=== PATIENT | female | born 1960 | race African-American/Black ===

== ENCOUNTER 2020-07-22 14:36 | Inpatient (IN) ==
[2020-07-22 16:13] LABS: Basophils % 0.9 % (0.0-0.8); Eosinophils # 0.1 10*3/uL (0.0-0.87); Hematocrit 39.2 VOL% (35.7-47.0); Hemoglobin 12.8 GM/DL (12.0-16.0); Immature Granulocytes % 0.2 %; Immature Granulocytes Absolute 0.01 #; Lymphocytes # 1.7 10*3/uL (1.4-4.0); Lymphocytes % 39.5 % (21.3-54.2); Mean Corpuscular HGB Conc 32.7 GM/DL (32-36); Mean Corpuscular Volume 77.3 FL (87-102); Mean Platelet Volume 9.7 FL (9.6-12.0); Monocytes % 6.5 % (1.7-12.7); Neutrophils % 49.9 % (38.7-73.9); Platelet Count 168 T/CUMM (130-400); Red Blood Count 5.07 MC/CUMM (3.8-5.5); Red Cell Distribution Width 13.7 % (9.3-17.3); White Blood Count 4.3 T/CUMM (4-12)
[2020-07-22 16:31] LABS: Bilirubin,Urine Negative (Negative); Blood, Urine Negative (Negative); Glucose,Urine (UA) 50 mg/dL (Negative); Ketones,Urine Negative (Negative); Mucus,Urine Occasional /LPF (Occasional); Nitrite,Urine Negative (Negative); Protein,Urine >=500 MG/DL; Squamous Epithelial Cell,Urine Occasional /HPF (0-10); Urine Appearance CLEAR (Clear); Urine Color Yellow (Yellow); Urine Specific Gravity 1.018 (1.001-1.035); Urine Urobilinogen < 2.0 EU/DL (0.2-1.0)
[2020-07-22 16:32] LABS: Barbiturates Screen,Urine Negative (Negative); Benzodiazepines Screen,Urine Negative (Negative); Cannabinoid Screen,Urine Negative (Negative); Opiate Screen,Urine Negative (Negative); Phencyclidine Screen,Urine Negative (Negative)
[2020-07-22 16:36] LABS: Alanine Aminotransferase 42 U/L (13-56); Albumin 3.2 G/DL (3.4-5.0); Alkaline Phosphatase 127 U/L (45-117); Aspartate Amino Transferase 28 U/L (0-37); Blood Urea Nitrogen 18 MG/DL (7-18); Calcium 9.4 MG/DL (8.5-10.1); Carbon Dioxide 32 MMOL/L (21-32); Estimated Glom Filtration Rate 117 ML/MIN; Glucose 98 MG/DL (74-106); Osmolality,Calculated 280.4 MOS/KG (273-304); Sodium 140 MMOL/L (136-145); Total Protein 8.7 G/DL (6.4-8.2); Troponin I < 0.015 NG/ML (0.00-0.045)
[2020-07-22] MEDS ORDERED: SODIUM CHLORIDE 0.9% 1,000 ML IV STA (16:44)
[2020-07-22] MEDS ORDERED: hydrALAZINE 20 MG/1 ML VIAL IV STA (17:09)
[2020-07-22] MEDS ORDERED: DEXTROSE 50% 25 GM/50 ML VIAL IV PRN ×2 (20:37)
[2020-07-22] MEDS ORDERED: ONDANSETRON 4 MG/2 ML VIAL IV PRN (20:37)
[2020-07-22] MEDS ORDERED: GLUCAGON 1 MG VIAL IM PRN ×2 (20:37)
[2020-07-22] MEDS: ENOXAPARIN 40 MG/0.4 ML SYRINGE SUBCUT SCH (21:53)
[2020-07-22] MEDS: INSULIN REGULAR 100 UNIT/ML SUBCUT SCH (21:58)
[2020-07-23 06:08] LABS: Basophils % 0.9 % (0.0-0.8); Eosinophils # 0.1 10*3/uL (0.0-0.87); Eosinophils % 2.9 % (0.00-10.9); Hematocrit 32.6 VOL% (35.7-47.0); Immature Granulocytes % 0.3 %; Immature Granulocytes Absolute 0.01 #; Lymphocytes # 1.4 10*3/uL (1.4-4.0); Lymphocytes % 40.2 % (21.3-54.2); Mean Corpuscular HGB Conc 32.5 GM/DL (32-36); Mean Corpuscular Volume 76.5 FL (87-102); Mean Platelet Volume 10.2 FL (9.6-12.0); Monocytes % 9.2 % (1.7-12.7); Neutrophils % 46.5 % (38.7-73.9); Platelet Count 151 T/CUMM (130-400); Red Blood Count 4.26 MC/CUMM (3.8-5.5); Red Cell Distribution Width 13.6 % (9.3-17.3); White Blood Count 3.5 T/CUMM (4-12)
[2020-07-23 06:12] LABS: Hemoglobin 10.6 GM/DL (12.0-16.0)
[2020-07-23 06:26] LABS: Albumin 2.5 G/DL (3.4-5.0); Bilirubin,Total 0.5 MG/DL (0.2-1.0); Calcium 8.8 MG/DL (8.5-10.1); Osmolality,Calculated 277.4 MOS/KG (273-304); Potassium 3.1 MMOL/L (3.5-5.1); Thyroid Stimulating Hormone 2.17 uIU/ml (0.358-3.74); Total Protein 6.8 G/DL (6.4-8.2)
[2020-07-23] MEDS: INSULIN REGULAR 100 UNIT/ML SUBCUT SCH ×3 (08:47→17:10)
[2020-07-23] MEDS: PANTOPRAZOLE 40 MG TABLET PO SCH (08:48)
[2020-07-23] MEDS ORDERED: POTASSIUM CHLORIDE RIDER 10 MEQ in PREMIX 1 EACH IV PRN (09:45)
[2020-07-23] MEDS ORDERED: POTASSIUM CHLORIDE 20 MEQ TABLET PO PRN ×2 (09:45→09:46)
[2020-07-23] MEDS ORDERED: POTASSIUM CHLORIDE 20 MEQ TABLET PO ONE (10:52)
[2020-07-23] MEDS ORDERED: amLODIPine 5 MG TABLET PO SCH (11:12)
[2020-07-23] MEDS: METOPROLOL TARTRATE 100 MG TABLET PO SCH (11:28)
[2020-07-23] MEDS: OLMESARTAN 20 MG TABLET PO SCH (11:29)
[2020-07-23] MEDS: ENOXAPARIN 40 MG/0.4 ML SYRINGE SUBCUT SCH (21:04)
[2020-07-24] MEDS: INSULIN REGULAR 100 UNIT/ML SUBCUT SCH ×5 (00:43→23:56)
[2020-07-24 05:29] LABS: Basophils % 0.8 % (0.0-0.8); Eosinophils # 0.1 10*3/uL (0.0-0.87); Eosinophils % 2.8 % (0.00-10.9); Hematocrit 31.6 VOL% (35.7-47.0); Immature Granulocytes % 0.3 %; Immature Granulocytes Absolute 0.01 #; Lymphocytes # 1.9 10*3/uL (1.4-4.0); Lymphocytes % 54.4 % (21.3-54.2); Mean Corpuscular HGB Conc 31.6 GM/DL (32-36); Mean Corpuscular Volume 78.6 FL (87-102); Mean Platelet Volume 10.4 FL (9.6-12.0); Neutrophils % 32.7 % (38.7-73.9); Platelet Count 118 T/CUMM (130-400); Red Blood Count 4.02 MC/CUMM (3.8-5.5); Red Cell Distribution Width 13.4 % (9.3-17.3); White Blood Count 3.6 T/CUMM (4-12)
[2020-07-24 05:54] LABS: Atypical Lymphocytes Few; Eosinophils 3 % (0-10); Hypochromasia 1+; Lymphocytes 62 % (20-55); Microcytosis 1+; Segmented Neutrophils 32 % (50-85); Total Cells Counted 100
[2020-07-24 05:57] LABS: Calcium 8.7 MG/DL (8.5-10.1); Osmolality,Calculated 279.4 MOS/KG (273-304); Potassium 3.5 MMOL/L (3.5-5.1)
[2020-07-24 06:01] LABS: Risk Ratio 2.98; VLDL CHOLESTEROL 18.8 MG/DL
[2020-07-24 06:05] LABS: Folate > 24.0 NG/ML (5.38-24.0); Vitamin B12 1031 PG/ML (211-911)
[2020-07-24] MEDS: SPIRONOLACTONE 25 MG TABLET PO SCH (09:07)
[2020-07-24] MEDS: OLMESARTAN 20 MG TABLET PO SCH (09:07)
[2020-07-24] MEDS: PANTOPRAZOLE 40 MG TABLET PO SCH (09:07)
[2020-07-24] MEDS: COLCHICINE 0.6 MG CAPSULE PO SCH (09:11)
[2020-07-24] MEDS: METOPROLOL TARTRATE 100 MG TABLET PO SCH (09:11)
[2020-07-24] MEDS: CHOLECALCIFEROL 1,000 UNIT TABLET PO SCH (13:34)
[2020-07-24] MEDS ORDERED: TUBERCULIN SKIN TEST 0.1 ML SYRINGE INTRADERM ONE (19:41)
[2020-07-24] MEDS: ENOXAPARIN 40 MG/0.4 ML SYRINGE SUBCUT SCH (21:49)
[2020-07-25 05:10] LABS: Basophils % 0.5 % (0.0-0.8); Eosinophils # 0.1 10*3/uL (0.0-0.87); Eosinophils % 3.3 % (0.00-10.9); Hematocrit 30.5 VOL% (35.7-47.0); Hemoglobin 9.9 GM/DL (12.0-16.0); Immature Granulocytes % 0.3 %; Immature Granulocytes Absolute 0.01 #; Lymphocytes # 1.6 10*3/uL (1.4-4.0); Lymphocytes % 44.4 % (21.3-54.2); Mean Corpuscular HGB Conc 32.5 GM/DL (32-36); Mean Corpuscular Volume 76.4 FL (87-102); Mean Platelet Volume 10.4 FL (9.6-12.0); Monocytes % 10.4 % (1.7-12.7); Neutrophils % 41.1 % (38.7-73.9); Platelet Count 116 T/CUMM (130-400); Red Blood Count 3.99 MC/CUMM (3.8-5.5); Red Cell Distribution Width 13.3 % (9.3-17.3); White Blood Count 3.7 T/CUMM (4-12)
[2020-07-25 05:24] LABS: Calcium 8.6 MG/DL (8.5-10.1); Potassium 3.4 MMOL/L (3.5-5.1)
[2020-07-25] MEDS: INSULIN REGULAR 100 UNIT/ML SUBCUT SCH ×4 (08:28→21:43)
[2020-07-25] MEDS: PANTOPRAZOLE 40 MG TABLET PO SCH (09:14)
[2020-07-25] MEDS: OLMESARTAN 20 MG TABLET PO SCH (09:37)
[2020-07-25] MEDS: ACETAMINOPHEN 325 MG TABLET PO PRN (09:37)
[2020-07-25] MEDS: COLCHICINE 0.6 MG CAPSULE PO SCH (09:38)
[2020-07-25] MEDS: CHOLECALCIFEROL 1,000 UNIT TABLET PO SCH (09:38)
[2020-07-25] MEDS: SPIRONOLACTONE 25 MG TABLET PO SCH (09:38)
[2020-07-25] MEDS: METOPROLOL TARTRATE 100 MG TABLET PO SCH (09:39)
[2020-07-25] MEDS ORDERED: POTASSIUM CHLORIDE INJ 30 MEQ in SODIUM CHLORIDE 0.9% 500 ML IV SCH (11:15)
[2020-07-25] MEDS: ENOXAPARIN 40 MG/0.4 ML SYRINGE SUBCUT SCH (21:44)
[2020-07-26 05:37] LABS: Calcium 8.6 MG/DL (8.5-10.1); Osmolality,Calculated 284.1 MOS/KG (273-304); Potassium 3.4 MMOL/L (3.5-5.1)
[2020-07-26] MEDS: INSULIN REGULAR 100 UNIT/ML SUBCUT SCH ×4 (08:32→20:53)
[2020-07-26] MEDS: OLMESARTAN 20 MG TABLET PO SCH (08:33)
[2020-07-26] MEDS: CHOLECALCIFEROL 1,000 UNIT TABLET PO SCH (08:33)
[2020-07-26] MEDS: SPIRONOLACTONE 25 MG TABLET PO SCH (08:34)
[2020-07-26] MEDS: PANTOPRAZOLE 40 MG TABLET PO SCH (08:34)
[2020-07-26] MEDS: COLCHICINE 0.6 MG CAPSULE PO SCH (08:34)
[2020-07-26] MEDS: METOPROLOL TARTRATE 100 MG TABLET PO SCH (08:34)
[2020-07-26] MEDS ORDERED: TUBERCULIN SKIN TEST 0.1 ML SYRINGE INTRADERM ONE (14:31)
[2020-07-26] MEDS: ENOXAPARIN 40 MG/0.4 ML SYRINGE SUBCUT SCH (20:53)
[2020-07-27 06:10] LABS: Basophils # 0.1 10*3/uL (0.0-0.2); Eosinophils # 0.2 10*3/uL (0.0-0.87); Eosinophils % 3.4 % (0.00-10.9); Hematocrit 30.6 VOL% (35.7-47.0); Immature Granulocytes % 0.2 %; Immature Granulocytes Absolute 0.01 #; Lymphocytes # 1.6 10*3/uL (1.4-4.0); Lymphocytes % 32.1 % (21.3-54.2); Mean Corpuscular HGB Conc 32.7 GM/DL (32-36); Mean Corpuscular Volume 76.1 FL (87-102); Mean Platelet Volume 10.3 FL (9.6-12.0); Monocytes % 15.9 % (1.7-12.7); Neutrophils % 47.4 % (38.7-73.9); Platelet Count 123 T/CUMM (130-400); Red Blood Count 4.02 MC/CUMM (3.8-5.5); Red Cell Distribution Width 13.2 % (9.3-17.3)
[2020-07-27 06:30] LABS: Osmolality,Calculated 281.1 MOS/KG (273-304); Potassium 3.4 MMOL/L (3.5-5.1)
[2020-07-27 06:43] LABS: Eosinophils 3 % (0-10); Hypochromasia 1+; Lymphocytes 25 % (20-55); Microcytosis 1+; Platelet Estimate Normal; Segmented Neutrophils 57 % (50-85); Total Cells Counted 100
[2020-07-27] MEDS: CHOLECALCIFEROL 1,000 UNIT TABLET PO SCH (08:46)
[2020-07-27] MEDS: COLCHICINE 0.6 MG CAPSULE PO SCH (08:46)
[2020-07-27] MEDS: OLMESARTAN 20 MG TABLET PO SCH (08:46)
[2020-07-27] MEDS: SPIRONOLACTONE 25 MG TABLET PO SCH (08:50)
[2020-07-27] MEDS: INSULIN REGULAR 100 UNIT/ML SUBCUT SCH ×3 (08:51→20:17)
[2020-07-27] MEDS: METOPROLOL TARTRATE 100 MG TABLET PO SCH (08:51)
[2020-07-27] MEDS: PANTOPRAZOLE 40 MG TABLET PO SCH (08:51)
[2020-07-27] MEDS: APIXABAN 5 MG TABLET PO SCH (20:16)
[2020-07-28] MEDS: ACETAMINOPHEN 325 MG TABLET PO PRN ×2 (03:17→08:14)
[2020-07-28] MEDS: INSULIN REGULAR 100 UNIT/ML SUBCUT SCH ×3 (07:16→11:50)
[2020-07-28] MEDS: PANTOPRAZOLE 40 MG TABLET PO SCH (08:14)
[2020-07-28] MEDS: COLCHICINE 0.6 MG CAPSULE PO SCH (08:14)
[2020-07-28] MEDS: SPIRONOLACTONE 25 MG TABLET PO SCH (08:15)
[2020-07-28] MEDS: APIXABAN 5 MG TABLET PO SCH (08:15)
[2020-07-28] MEDS: CHOLECALCIFEROL 1,000 UNIT TABLET PO SCH (08:15)
[2020-07-28] MEDS ORDERED: predniSONE 20 MG TABLET PO SCH (09:00)
[2020-07-28] MEDS ORDERED: valACYclovir 500 MG TABLET PO SCH (09:00)
[2020-07-28] MEDS ORDERED: FERROUS SULFATE 325 MG TABLET PO SCH (09:00)
[2020-07-28] MEDS ORDERED: LINEZOLID 600 MG TABLET PO SCH (09:00)
[2020-07-28] MEDS ORDERED: MULTIVITAMIN (CENTRUM) TABLET PO SCH (09:00)
[2020-07-28] MEDS ORDERED: ATORVASTATIN 40 MG TABLET PO SCH (09:00)
[2020-07-28] MEDS: METOPROLOL TARTRATE 100 MG TABLET PO SCH (09:42)
[2020-07-28] MEDS: OLMESARTAN 20 MG TABLET PO SCH (09:42)
[2020-07-28] MEDS ORDERED: hydrALAZINE 20 MG/1 ML VIAL IV PRN (10:51)
[2020-07-28] MEDS ORDERED: PREGABALIN 25 MG CAPSULE PO SCH (11:00)
[2020-07-28 16:01] VITALS: BP 124/72
[2020-07-28] MEDS ORDERED: METOPROLOL TARTRATE 100 MG TABLET PO SCH (21:00)
[2020-07-29] MEDS ORDERED: PREGABALIN 25 MG CAPSULE PO SCH (09:00)
== END 2020-07-28 16:19 | DRG 546 ==
LOC: N.EDINP 14:36 → N.ED 14:36 → N.4E 20:49 → SUATTDRO 07-24 14:59
PROVIDERS: ADMIT Internal Medicine; ATTEND Internal Medicine

== ENCOUNTER 2020-07-30 12:54 | Observation (INO) ==
[2020-07-30] MEDS ORDERED: DOCUSATE SODIUM 100 MG CAPSULE PO PRN (14:13)
[2020-07-30] MEDS ORDERED: GLUCAGON 1 MG VIAL IM PRN (14:13)
[2020-07-30] MEDS ORDERED: ONDANSETRON 4 MG/2 ML VIAL IV PRN (14:13)
[2020-07-30] MEDS ORDERED: hydrALAZINE 20 MG/1 ML VIAL IV PRN (14:13)
[2020-07-30] MEDS ORDERED: ALBUTEROL 2.5 MG/3 ML NEB RESP TX PRN (14:13)
[2020-07-30] MEDS ORDERED: ACETAMINOPHEN 325 MG TABLET PO PRN (14:13)
[2020-07-30] MEDS ORDERED: DEXTROSE 50% 25 GM/50 ML VIAL IV PRN (14:13)
[2020-07-30] MEDS ORDERED: guaiFENesin/DM ER 600-30 MG TABLET PO PRN (14:13)
[2020-07-30] MEDS ORDERED: ASPIRIN EC 325 MG TABLET PO STA (14:21)
[2020-07-30 14:29] LABS: Basophils % 0.5 % (0.0-0.8); Eosinophils # 0.3 10*3/uL (0.0-0.87); Hematocrit 31.7 VOL% (35.7-47.0); Hemoglobin 10.1 GM/DL (12.0-16.0); Immature Granulocytes % 0.5 %; Immature Granulocytes Absolute 0.02 #; Lymphocytes # 1.5 10*3/uL (1.4-4.0); Mean Corpuscular HGB Conc 31.9 GM/DL (32-36); Mean Corpuscular Volume 77.7 FL (87-102); Mean Platelet Volume 10.4 FL (9.6-12.0); Monocytes % 9.5 % (1.7-12.7); Neutrophils % 43.5 % (38.7-73.9); Platelet Count 190 T/CUMM (130-400); Red Blood Count 4.08 MC/CUMM (3.8-5.5); Red Cell Distribution Width 13.9 % (9.3-17.3)
[2020-07-30] MEDS ORDERED: NON-FORMULARY MEDICATION (Methylprednisolone [Medrol (Pak)] 4 mg Tablets,Dose Pack) PO SCH (14:30)
[2020-07-30] MEDS ORDERED: ENOXAPARIN 40 MG/0.4 ML SYRINGE SUBCUT SCH (14:30)
[2020-07-30 14:43] LABS: INR 1.2; PT Patient Result 13.5 SECS (9.8-11.9)
[2020-07-30 14:56] LABS: Alanine Aminotransferase 64 U/L (13-56); Albumin 2.8 G/DL (3.4-5.0); Alkaline Phosphatase 82 U/L (45-117); Aspartate Amino Transferase 28 U/L (0-37); Bilirubin,Total < 0.39 MG/DL (0.2-1.0); Blood Urea Nitrogen 20 MG/DL (7-18); Calcium 8.8 MG/DL (8.5-10.1); Carbon Dioxide 26 MMOL/L (21-32); Estimated Glom Filtration Rate 95 ML/MIN; Glucose 106 MG/DL (74-106); Osmolality,Calculated 285.1 MOS/KG (273-304); Potassium 3.4 MMOL/L (3.5-5.1); Sodium 142 MMOL/L (136-145); Total Protein 6.5 G/DL (6.4-8.2)
[2020-07-30 15:02] LABS: Risk Ratio 3.82; VLDL CHOLESTEROL 23.8 MG/DL
[2020-07-30 15:42] LABS: Bilirubin,Urine Negative (Negative); Blood, Urine Negative (Negative); Glucose,Urine (UA) 50 mg/dL (Negative); Ketones,Urine Negative (Negative); Mucus,Urine Occasional /LPF (Occasional); Nitrite,Urine Negative (Negative); Protein,Urine 30 MG/DL; RBC,Urine <1 /HPF (0-4); Squamous Epithelial Cell,Urine Occasional /HPF (0-10); Urine Appearance CLEAR (Clear); Urine Color Yellow (Yellow); Urine Specific Gravity 1.021 (1.001-1.035); Urine Urobilinogen < 2.0 EU/DL (0.2-1.0)
[2020-07-30] MEDS ORDERED: LORazepam 2 MG/1 ML VIAL IV STA (18:16)
[2020-07-30] MEDS: valACYclovir 500 MG TABLET PO SCH ×2 (18:25→23:41)
[2020-07-30] MEDS ORDERED: diphenhydrAMINE 2% CREAM 28 GM TUBE TOP PRN (20:11)
[2020-07-30] MEDS ORDERED: diphenhydrAMINE CAP 25 MG CAPSULE PO PRN (20:11)
[2020-07-30] MEDS: INSULIN LISPRO 100 UNIT/ML SUBCUT SCH (21:02)
[2020-07-30] MEDS: methylPREDNISolone 4 MG TABLET PO SCH (23:32)
[2020-07-30] MEDS: APIXABAN 5 MG TABLET PO SCH (23:34)
[2020-07-30] MEDS: SULFAMETHOX/TRIMETHOPRIM 800-160 MG TABLET PO SCH (23:35)
[2020-07-30] MEDS: METOPROLOL TARTRATE 100 MG TABLET PO SCH (23:42)
[2020-07-30] MEDS: FLUTICASONE/SALMETEROL 100-50 DISKUS 14 DOSE INH SCH (23:43)
[2020-07-30] MEDS: SODIUM CHLORIDE 0.45% 1,000 ML IV SCH (23:43)
[2020-07-31] MEDS: SODIUM CHLORIDE 0.45% 1,000 ML IV SCH ×2 (00:39→10:42)
[2020-07-31 07:46] LABS: Basophils % 0.5 % (0.0-0.8); Hematocrit 33.5 VOL% (35.7-47.0); Hemoglobin 10.5 GM/DL (12.0-16.0); Immature Granulocytes % 0.5 %; Immature Granulocytes Absolute 0.02 #; Lymphocytes # 0.5 10*3/uL (1.4-4.0); Lymphocytes % 13.3 % (21.3-54.2); Mean Corpuscular HGB Conc 31.3 GM/DL (32-36); Mean Corpuscular Volume 77.7 FL (87-102); Mean Platelet Volume 10.2 FL (9.6-12.0); Monocytes % 2.1 % (1.7-12.7); Neutrophils % 82.6 % (38.7-73.9); Platelet Count 207 T/CUMM (130-400); Red Blood Count 4.31 MC/CUMM (3.8-5.5); Red Cell Distribution Width 13.6 % (9.3-17.3); White Blood Count 3.9 T/CUMM (4-12)
[2020-07-31 08:06] LABS: Calcium 8.8 MG/DL (8.5-10.1); Osmolality,Calculated 280.5 MOS/KG (273-304); Potassium 3.8 MMOL/L (3.5-5.1)
[2020-07-31 08:13] LABS: Eosinophils 1 % (0-10); Hypochromasia 1+; Lymphocytes 11 % (20-55); Segmented Neutrophils 86 % (50-85); Total Cells Counted 100
[2020-07-31 08:14] LABS: Microcytosis 1+; Platelet Estimate Normal
[2020-07-31] MEDS: valACYclovir 500 MG TABLET PO SCH ×2 (08:33→14:45)
[2020-07-31] MEDS: methylPREDNISolone 4 MG TABLET PO SCH ×2 (08:33→14:44)
[2020-07-31] MEDS: METOPROLOL TARTRATE 100 MG TABLET PO SCH (08:35)
[2020-07-31] MEDS: APIXABAN 5 MG TABLET PO SCH (08:36)
[2020-07-31] MEDS: SULFAMETHOX/TRIMETHOPRIM 800-160 MG TABLET PO SCH (08:37)
[2020-07-31] MEDS ORDERED: SPIRONOLACTONE 25 MG TABLET PO SCH (09:00)
[2020-07-31] MEDS ORDERED: OLMESARTAN 20 MG TABLET PO SCH (09:00)
[2020-07-31] MEDS ORDERED: ATORVASTATIN 40 MG TABLET PO SCH ×2 (09:00)
[2020-07-31] MEDS ORDERED: ASPIRIN EC 81 MG TABLET PO SCH (09:00)
[2020-07-31] MEDS ORDERED: MULTIVITAMIN (CENTRUM) TABLET PO SCH (09:00)
[2020-07-31] MEDS ORDERED: COLCHICINE 0.6 MG CAPSULE PO SCH (09:00)
[2020-07-31] MEDS ORDERED: PANTOPRAZOLE 40 MG TABLET PO SCH (09:00)
[2020-07-31] MEDS ORDERED: FERROUS SULFATE 325 MG TABLET PO SCH (09:00)
[2020-07-31] MEDS ORDERED: CHOLECALCIFEROL 1,000 UNIT TABLET PO SCH (09:00)
[2020-07-31] MEDS: INSULIN LISPRO 100 UNIT/ML SUBCUT SCH ×3 (10:40→16:27)
[2020-07-31] MEDS: FLUTICASONE/SALMETEROL 100-50 DISKUS 14 DOSE INH SCH (10:41)
[2020-07-31 16:26] VITALS: BP 198/96
[2020-08-02 11:06] LABS: Antinuclear Ab, S < 0.1 U
== END 2020-07-31 19:18 ==
LOC: EDBD → EDUNIT# → N.ED 12:54 → INTOOBSV 14:13 → SUATTDRO 14:13 → N.EDINP 14:13 → N.TELES 19:51
PROVIDERS: ADMIT Internal Medicine; ATTEND Hospitalist

== ENCOUNTER 2021-05-24 10:51 | Inpatient (IN) ==
[2021-05-24] MEDS ORDERED: SODIUM CHLORIDE 0.9% 1,000 ML IV STA (11:15)
[2021-05-24] MEDS ORDERED: ONDANSETRON 4 MG/2 ML VIAL IV STA (11:15)
[2021-05-24 12:20] LABS: Basophils % 0.4 % (0.0-0.8); Eosinophils # 0.1 10*3/uL (0.0-0.87); Eosinophils % 0.7 % (0.00-10.9); Hematocrit 24.8 VOL% (35.7-47.0); Hemoglobin 7.8 GM/DL (12.0-16.0); Immature Granulocytes % 0.7 %; Immature Granulocytes Absolute 0.05 #; Lymphocytes # 1.1 10*3/uL (1.4-4.0); Lymphocytes % 16.3 % (21.3-54.2); Mean Corpuscular HGB Conc 31.5 GM/DL (32-36); Mean Corpuscular Volume 84.6 FL (87-102); Mean Platelet Volume 9.6 FL (9.6-12.0); Monocytes % 10.6 % (1.7-12.7); Neutrophils % 71.3 % (38.7-73.9); Platelet Count 356 T/CUMM (130-400); Red Blood Count 2.93 MC/CUMM (3.8-5.5); Red Cell Distribution Width 12.6 % (9.3-17.3)
[2021-05-24 12:31] LABS: Albumin 2.2 G/DL (3.4-5.0); Bilirubin,Total 0.5 MG/DL (0.20-1.00); Calcium 9.5 MG/DL (8.5-10.1); Osmolality,Calculated 280.2 MOS/KG (273-304); Potassium 3.3 MMOL/L (3.5-5.1); Total Protein 7.9 G/DL (6.4-8.2)
[2021-05-24] MEDS ORDERED: VANCOMYCIN INJ 1,500 MG in SODIUM CHLORIDE 0.9% 500 ML IV STA (13:14)
[2021-05-24] MEDS ORDERED: MEROPENEM 1,000 MG in SODIUM CHLORIDE 0.9% 100 ML IV STA (13:14)
[2021-05-24 13:40] LABS: % Iron Saturation 14.2 % (18-50)
[2021-05-24 13:58] LABS: Bilirubin,Urine Negative (Negative); Blood, Urine Small mg/dL (Negative); Glucose,Urine (UA) 50 mg/dL (Negative); Ketones,Urine 5 mg/dL (Negative); Mucus,Urine Occasional /LPF (Occasional); Nitrite,Urine Negative (Negative); Protein,Urine 100 MG/DL; RBC,Urine 2 /HPF (0-4); Squamous Epithelial Cell,Urine Occasional /HPF (0-10); Urine Appearance Slightly Hazy (Clear); Urine Color Yellow (Yellow); Urine Specific Gravity 1.015 (1.001-1.035); Urine Urobilinogen < 2.0 EU/DL (<2.0)
[2021-05-24 14:02] LABS: Anisocytosis 1+; Eosinophils 1 % (0-10); Hypochromia Slight; Lymphocytes 13 % (20-55); Segmented Neutrophils 78 % (50-85); Total Cells Counted 100
[2021-05-24 14:03] LABS: Platelet Estimate Normal; Polychromasia Slight
[2021-05-24] MEDS ORDERED: DEXTROSE 10% 250 ML BAG IV PRN (14:08)
[2021-05-24] MEDS ORDERED: GLUCAGON 1 MG VIAL IM PRN (14:08)
[2021-05-24] MEDS ORDERED: POTASSIUM CHLORIDE 20 MEQ TABLET PO ONE (14:18)
[2021-05-24] MEDS ORDERED: ENOXAPARIN 40 MG/0.4 ML SYRINGE SUBCUT SCH (14:30)
[2021-05-24] MEDS ORDERED: VANCOMYCIN INJ 1,000 MG in SODIUM CHLORIDE 0.9% 250 ML IV SCH (14:30)
[2021-05-24 14:55] LABS: Folate 21.92 NG/ML (5.38-24.0)
[2021-05-24 15:34] LABS: Risk Ratio 2.51; VLDL Cholesterol 15.6 MG/DL
[2021-05-24 15:42] LABS: % Iron Saturation 12.3 % (18-50); Ferritin 400.5 ng/mL (8-252)
[2021-05-24 17:59] LABS: Hematocrit 24.8 VOL% (35.7-47.0); Hemoglobin 7.9 GM/DL (12.0-16.0)
[2021-05-24] MEDS: INSULIN LISPRO 100 UNIT/ML SUBCUT SCH ×2 (18:34→22:26)
[2021-05-24] MEDS: MEROPENEM 500 MG in SODIUM CHLORIDE 0.9% 100 ML IV SCH (22:26)
[2021-05-25] MEDS: SODIUM CHLORIDE 0.9% 1,000 ML IV SCH ×3 (02:04→10:49)
[2021-05-25] MEDS: MEROPENEM 500 MG in SODIUM CHLORIDE 0.9% 100 ML IV SCH ×2 (04:21→10:46)
[2021-05-25 05:38] LABS: Basophils % 0.6 % (0.0-0.8); Eosinophils # 0.1 10*3/uL (0.0-0.87); Eosinophils % 1.5 % (0.00-10.9); Hematocrit 23.8 VOL% (35.7-47.0); Hemoglobin 7.5 GM/DL (12.0-16.0); Immature Granulocytes % 0.3 %; Immature Granulocytes Absolute 0.02 #; Lymphocytes # 1.2 10*3/uL (1.4-4.0); Lymphocytes % 18.7 % (21.3-54.2); Mean Corpuscular HGB Conc 31.5 GM/DL (32-36); Mean Corpuscular Volume 83.5 FL (87-102); Mean Platelet Volume 9.5 FL (9.6-12.0); Monocytes % 13.4 % (1.7-12.7); Neutrophils % 65.5 % (38.7-73.9); Platelet Count 283 T/CUMM (130-400); Red Blood Count 2.85 MC/CUMM (3.8-5.5); Red Cell Distribution Width 12.5 % (9.3-17.3); White Blood Count 6.5 T/CUMM (4-12)
[2021-05-25 05:58] LABS: Albumin 1.7 G/DL (3.4-5.0); Bilirubin,Total 1.2 MG/DL (0.20-1.00); Calcium 8.4 MG/DL (8.5-10.1); Osmolality,Calculated 282.4 MOS/KG (273-304); Potassium 3.2 MMOL/L (3.5-5.1); Total Protein 6.7 G/DL (6.4-8.2)
[2021-05-25 06:37] LABS: Hematocrit 23.6 VOL% (35.7-47.0); Hemoglobin 7.5 GM/DL (12.0-16.0)
[2021-05-25] MEDS: INSULIN LISPRO 100 UNIT/ML SUBCUT SCH ×4 (08:00→21:50)
[2021-05-25 08:34] LABS: Total Protein (Chem) 7.9 G/DL (6.4-8.3)
[2021-05-25 08:35] LABS: Random Urine Protein (Bench) 162 MG/DL (<11.9)
[2021-05-25] MEDS: VANCOMYCIN INJ 1,000 MG in SODIUM CHLORIDE 0.9% 250 ML IV SCH (09:29)
[2021-05-25] MEDS: PANTOPRAZOLE 40 MG TABLET PO SCH (09:29)
[2021-05-25 10:39] LABS: Albumin (SPE) 3.2 G/DL (3.2-5.3); Albumin (SPE) Rel % 39.9 %; Alpha 1 (SPE) 0.4 G/DL (0.1-0.4); Alpha 1 (SPE) Rel % 5.4 %; Alpha 2 (SPE) 1.6 G/DL (0.4-1.0); Alpha 2 (SPE) Rel % 20.1 %; Beta (SPE) Rel % 12.6 %; Gamma (SPE) 1.7 G/DL (0.7-1.7)
[2021-05-25 14:21] LABS: Hematocrit 23.7 VOL% (35.7-47.0); Hemoglobin 7.5 GM/DL (12.0-16.0)
[2021-05-25] MEDS: LEVOFLOXACIN INJ 500 MG/100 ML PREMIX IV SCH (15:37)
[2021-05-25] MEDS: ACETAMINOPHEN 325 MG TABLET PO PRN (15:53)
[2021-05-25] MEDS ORDERED: METOPROLOL SUCCINATE XL 100 MG TABLET PO ONE (18:22)
[2021-05-25] MEDS: SODIUM CHLOR 0.45% KCL 20 MEQ 20 MEQ/1,000 ML BAG IV SCH (18:33)
[2021-05-26] MEDS: SODIUM CHLOR 0.45% KCL 20 MEQ 20 MEQ/1,000 ML BAG IV SCH ×2 (02:58→12:43)
[2021-05-26] MEDS: VANCOMYCIN INJ 1,000 MG in SODIUM CHLORIDE 0.9% 250 ML IV SCH ×2 (02:58→23:19)
[2021-05-26 06:00] LABS: Basophils % 0.4 % (0.0-0.8); Eosinophils # 0.1 10*3/uL (0.0-0.87); Eosinophils % 1.5 % (0.00-10.9); Hemoglobin 7.3 GM/DL (12.0-16.0); Immature Granulocytes % 0.4 %; Immature Granulocytes Absolute 0.03 #; Lymphocytes # 1.2 10*3/uL (1.4-4.0); Lymphocytes % 16.2 % (21.3-54.2); Mean Corpuscular HGB Conc 31.7 GM/DL (32-36); Mean Corpuscular Volume 83.3 FL (87-102); Mean Platelet Volume 9.5 FL (9.6-12.0); Monocytes % 11.6 % (1.7-12.7); Neutrophils % 69.9 % (38.7-73.9); Platelet Count 296 T/CUMM (130-400); Red Blood Count 2.76 MC/CUMM (3.8-5.5); Red Cell Distribution Width 12.5 % (9.3-17.3); White Blood Count 7.2 T/CUMM (4-12)
[2021-05-26 06:05] LABS: Albumin 1.7 G/DL (3.4-5.0); Bilirubin,Total 0.4 MG/DL (0.20-1.00); Calcium 8.5 MG/DL (8.5-10.1); Osmolality,Calculated 275.1 MOS/KG (273-304); Potassium 3.6 MMOL/L (3.5-5.1); Total Protein 6.6 G/DL (6.4-8.2)
[2021-05-26] MEDS: METOPROLOL SUCCINATE XL 100 MG TABLET PO SCH (09:00)
[2021-05-26] MEDS: INSULIN LISPRO 100 UNIT/ML SUBCUT SCH ×4 (09:01→22:10)
[2021-05-26] MEDS ORDERED: LACTATED RINGERS 1,000 ML IV SCH (11:30)
[2021-05-26] MEDS ORDERED: MIDAZOLAM 2 MG/2 ML VIAL ONE (11:56)
[2021-05-26] MEDS ORDERED: LIDOCAINE 2% 5 ML VIAL ONE (11:56)
[2021-05-26] MEDS ORDERED: fentaNYL 100 MCG/2 ML VIAL ONE (11:56)
[2021-05-26] MEDS ORDERED: propofoL 200 MG/20 ML VIAL IV ONE (11:56)
[2021-05-26] MEDS ORDERED: ALBUMIN 5% 12.5 GM/250 ML VIAL IV ONE (12:49)
[2021-05-26] MEDS ORDERED: PHENYLEPHRINE 1 MG/10 ML SYRINGE IV ONE (13:04)
[2021-05-26] MEDS ORDERED: SEVOFLURANE 1 UNIT/15 MINUTE INH ONE (13:05)
[2021-05-26] MEDS ORDERED: diphenhydrAMINE 50 MG/1 ML VIAL IV PRN (13:32)
[2021-05-26] MEDS ORDERED: PROMETHAZINE INJ 25 MG in SODIUM CHLORIDE 0.9% 50 ML IV PRN (13:32)
[2021-05-26] MEDS ORDERED: MEPERIDINE 25 MG/1 ML VIAL IV PRN (13:32)
[2021-05-26] MEDS ORDERED: ONDANSETRON 4 MG/2 ML VIAL IV PRN (13:32)
[2021-05-26] MEDS ORDERED: HYDROmorphone 2 MG/1 ML VIAL IV PRN (13:32)
[2021-05-26] MEDS: hydrALAZINE 20 MG/1 ML VIAL IV PRN (13:45)
[2021-05-26 13:48] LABS: Hematocrit 20.4 VOL% (35.7-47.0)
[2021-05-26 13:54] LABS: Hemoglobin 6.4 GM/DL (12.0-16.0)
[2021-05-26] MEDS ORDERED: SODIUM CHLORIDE 0.9% 1,000 ML IV PRN (13:56)
[2021-05-26] MEDS: PANTOPRAZOLE 40 MG TABLET PO SCH (14:02)
[2021-05-26] MEDS: LEVOFLOXACIN INJ 500 MG/100 ML PREMIX IV SCH (22:08)
[2021-05-26] MEDS: ACETAMINOPHEN 325 MG TABLET PO PRN (22:10)
[2021-05-26] MEDS: FERROUS SULFATE 325 MG TABLET PO SCH (22:10)
[2021-05-26] MEDS: HYDROmorphone 2 MG/1 ML VIAL IV PRN (23:51)
[2021-05-27] MEDS: SODIUM CHLOR 0.45% KCL 20 MEQ 20 MEQ/1,000 ML BAG IV SCH ×3 (04:59→21:08)
[2021-05-27 07:35] LABS: Basophils % 0.4 % (0.0-0.8); Hematocrit 30.3 VOL% (35.7-47.0); Immature Granulocytes % 0.5 %; Immature Granulocytes Absolute 0.05 #; Mean Corpuscular Volume 85.8 FL (87-102); Mean Platelet Volume 9.9 FL (9.6-12.0)
[2021-05-27 07:39] LABS: Eosinophils # 0.1 10*3/uL (0.0-0.87); Lymphocytes % 9.3 % (21.3-54.2); Monocytes % 9.9 % (1.7-12.7); Neutrophils % 78.9 % (38.7-73.9); Platelet Count 291 T/CUMM (130-400); Red Cell Distribution Width 13.6 % (9.3-17.3)
[2021-05-27 07:40] LABS: Red Blood Count 3.53 MC/CUMM (3.8-5.5); White Blood Count 10.3 T/CUMM (4-12)
[2021-05-27 07:41] LABS: Hemoglobin 9.7 GM/DL (12.0-16.0)
[2021-05-27 07:46] LABS: Calcium 8.1 MG/DL (8.5-10.1); Potassium 3.7 MMOL/L (3.5-5.1)
[2021-05-27] MEDS: INSULIN LISPRO 100 UNIT/ML SUBCUT SCH ×4 (09:29→21:08)
[2021-05-27] MEDS: SPIRONOLACTONE 25 MG TABLET PO SCH (09:29)
[2021-05-27] MEDS: FUROSEMIDE 40 MG TABLET PO SCH (09:30)
[2021-05-27] MEDS: PANTOPRAZOLE 40 MG TABLET PO SCH (09:30)
[2021-05-27] MEDS: ATORVASTATIN 40 MG TABLET PO SCH (09:30)
[2021-05-27] MEDS: FERROUS SULFATE 325 MG TABLET PO SCH ×2 (09:30→21:08)
[2021-05-27] MEDS: METOPROLOL SUCCINATE XL 100 MG TABLET PO SCH (09:30)
[2021-05-27] MEDS: HYDROmorphone 2 MG/1 ML VIAL IV PRN (13:54)
[2021-05-27] MEDS: VANCOMYCIN INJ 1,000 MG in SODIUM CHLORIDE 0.9% 250 ML IV SCH (16:11)
[2021-05-27] MEDS: LEVOFLOXACIN INJ 500 MG/100 ML PREMIX IV SCH (21:07)
[2021-05-28] MEDS: ACETAMINOPHEN 325 MG TABLET PO PRN ×3 (04:54→13:25)
[2021-05-28 05:58] LABS: Basophils # 0.1 10*3/uL (0.0-0.2); Basophils % 0.7 % (0.0-0.8); Eosinophils # 0.1 10*3/uL (0.0-0.87); Eosinophils % 1.1 % (0.00-10.9); Hematocrit 29.9 VOL% (35.7-47.0); Hemoglobin 9.9 GM/DL (12.0-16.0); Immature Granulocytes % 0.6 %; Immature Granulocytes Absolute 0.06 #; Lymphocytes # 1.2 10*3/uL (1.4-4.0); Lymphocytes % 11.9 % (21.3-54.2); Mean Corpuscular HGB Conc 33.1 GM/DL (32-36); Mean Corpuscular Volume 83.1 FL (87-102); Mean Platelet Volume 9.4 FL (9.6-12.0); Monocytes % 10.4 % (1.7-12.7); Neutrophils % 75.3 % (38.7-73.9); Platelet Count 303 T/CUMM (130-400); Red Cell Distribution Width 13.2 % (9.3-17.3); White Blood Count 9.9 T/CUMM (4-12)
[2021-05-28 06:05] LABS: Calcium 8.3 MG/DL (8.5-10.1); Osmolality,Calculated 270.7 MOS/KG (273-304); Potassium 3.6 MMOL/L (3.5-5.1)
[2021-05-28] MEDS: INSULIN LISPRO 100 UNIT/ML SUBCUT SCH ×4 (08:38→21:28)
[2021-05-28] MEDS: PANTOPRAZOLE 40 MG TABLET PO SCH (08:38)
[2021-05-28] MEDS: METOPROLOL SUCCINATE XL 100 MG TABLET PO SCH (08:38)
[2021-05-28] MEDS: FERROUS SULFATE 325 MG TABLET PO SCH ×2 (08:38→21:28)
[2021-05-28] MEDS: VANCOMYCIN INJ 1,000 MG in SODIUM CHLORIDE 0.9% 250 ML IV SCH (08:39)
[2021-05-28] MEDS: SPIRONOLACTONE 25 MG TABLET PO SCH (08:39)
[2021-05-28] MEDS: ATORVASTATIN 40 MG TABLET PO SCH (08:39)
[2021-05-28] MEDS: FUROSEMIDE 40 MG TABLET PO SCH (08:39)
[2021-05-28 16:46] LABS: Bacteria,Urine Moderate /HPF (Few); Mucus,Urine Occasional /LPF (Occasional); RBC,Urine 14 /HPF (0-4); Squamous Epithelial Cell,Urine Occasional /HPF (0-10)
[2021-05-28] MEDS: SODIUM CHLOR 0.45% KCL 20 MEQ 20 MEQ/1,000 ML BAG IV SCH (17:16)
[2021-05-28 17:37] LABS: Protein,Urine Negative; Urine Appearance Clear (Clear); Urine Color Yellow (Yellow)
[2021-05-28 17:38] LABS: Bilirubin,Urine Negative (Negative); Blood, Urine Small mg/dL (Negative); Glucose,Urine (UA) Negative (Negative); Ketones,Urine Negative (Negative); Nitrite,Urine Negative (Negative); Urine Urobilinogen 0.2 EU/DL (<2.0)
[2021-05-28] MEDS: LEVOFLOXACIN INJ 500 MG/100 ML PREMIX IV SCH (21:28)
[2021-05-28] MEDS: BACLOFEN 10 MG TABLET PO SCH (21:28)
[2021-05-29] MEDS: ACETAMINOPHEN 325 MG TABLET PO PRN ×2 (00:03→12:27)
[2021-05-29] MEDS: HYDROmorphone 2 MG/1 ML VIAL IV PRN (02:27)
[2021-05-29] MEDS: VANCOMYCIN INJ 1,000 MG in SODIUM CHLORIDE 0.9% 250 ML IV SCH ×2 (02:31→21:33)
[2021-05-29 06:49] LABS: Basophils % 0.4 % (0.0-0.8); Eosinophils # 0.2 10*3/uL (0.0-0.87); Eosinophils % 1.6 % (0.00-10.9); Hematocrit 28.2 VOL% (35.7-47.0); Hemoglobin 9.1 GM/DL (12.0-16.0); Immature Granulocytes % 0.8 %; Immature Granulocytes Absolute 0.07 #; Lymphocytes # 1.1 10*3/uL (1.4-4.0); Lymphocytes % 11.8 % (21.3-54.2); Mean Corpuscular HGB Conc 32.3 GM/DL (32-36); Mean Corpuscular Volume 84.2 FL (87-102); Mean Platelet Volume 9.1 FL (9.6-12.0); Monocytes % 8.4 % (1.7-12.7); Platelet Count 288 T/CUMM (130-400); Red Blood Count 3.35 MC/CUMM (3.8-5.5); Red Cell Distribution Width 13.2 % (9.3-17.3); White Blood Count 9.2 T/CUMM (4-12)
[2021-05-29 07:10] LABS: Osmolality,Calculated 276.2 MOS/KG (273-304); Potassium 3.5 MMOL/L (3.5-5.1)
[2021-05-29] MEDS: INSULIN LISPRO 100 UNIT/ML SUBCUT SCH ×5 (08:47→21:25)
[2021-05-29] MEDS: FERROUS SULFATE 325 MG TABLET PO SCH ×2 (08:48→21:25)
[2021-05-29] MEDS: SPIRONOLACTONE 25 MG TABLET PO SCH (08:48)
[2021-05-29] MEDS: BACLOFEN 10 MG TABLET PO SCH ×2 (08:48→21:25)
[2021-05-29] MEDS: ATORVASTATIN 40 MG TABLET PO SCH (08:48)
[2021-05-29] MEDS: PANTOPRAZOLE 40 MG TABLET PO SCH (08:48)
[2021-05-29] MEDS: FUROSEMIDE 40 MG TABLET PO SCH (08:49)
[2021-05-29] MEDS: METOPROLOL SUCCINATE XL 100 MG TABLET PO SCH (08:49)
[2021-05-29] MEDS ORDERED: FUROSEMIDE 40 MG/4 ML VIAL IV ONE (13:23)
[2021-05-29] MEDS: MEROPENEM 500 MG in SODIUM CHLORIDE 0.9% 100 ML IV SCH ×2 (14:46→20:26)
[2021-05-30] MEDS: MEROPENEM 500 MG in SODIUM CHLORIDE 0.9% 100 ML IV SCH ×4 (02:02→21:12)
[2021-05-30] MEDS: hydrALAZINE 20 MG/1 ML VIAL IV PRN (03:09)
[2021-05-30] MEDS: ACETAMINOPHEN 325 MG TABLET PO PRN (03:12)
[2021-05-30] MEDS: HYDROmorphone 2 MG/1 ML VIAL IV PRN ×2 (03:51→09:18)
[2021-05-30 06:55] LABS: Basophils # 0.1 10*3/uL (0.0-0.2); Basophils % 0.6 % (0.0-0.8); Eosinophils # 0.2 10*3/uL (0.0-0.87); Eosinophils % 1.8 % (0.00-10.9); Hematocrit 31.2 VOL% (35.7-47.0); Hemoglobin 10.1 GM/DL (12.0-16.0); Immature Granulocytes % 0.6 %; Immature Granulocytes Absolute 0.06 #; Lymphocytes # 1.2 10*3/uL (1.4-4.0); Mean Corpuscular HGB Conc 32.4 GM/DL (32-36); Mean Corpuscular Volume 83.9 FL (87-102); Mean Platelet Volume 9.7 FL (9.6-12.0); Monocytes % 8.3 % (1.7-12.7); Neutrophils % 76.7 % (38.7-73.9); Platelet Count 335 T/CUMM (130-400); Red Blood Count 3.72 MC/CUMM (3.8-5.5); Red Cell Distribution Width 13.3 % (9.3-17.3); White Blood Count 9.9 T/CUMM (4-12)
[2021-05-30 07:12] LABS: Calcium 8.2 MG/DL (8.5-10.1); Osmolality,Calculated 271.2 MOS/KG (273-304); Potassium 3.1 MMOL/L (3.5-5.1)
[2021-05-30] MEDS: ATORVASTATIN 40 MG TABLET PO SCH (10:43)
[2021-05-30] MEDS: FERROUS SULFATE 325 MG TABLET PO SCH ×2 (10:43→20:58)
[2021-05-30] MEDS: PANTOPRAZOLE 40 MG TABLET PO SCH (10:43)
[2021-05-30] MEDS: SPIRONOLACTONE 25 MG TABLET PO SCH (10:43)
[2021-05-30] MEDS: FUROSEMIDE 40 MG TABLET PO SCH (10:43)
[2021-05-30] MEDS: METOPROLOL SUCCINATE XL 100 MG TABLET PO SCH (10:43)
[2021-05-30] MEDS: BACLOFEN 10 MG TABLET PO SCH ×2 (10:43→20:58)
[2021-05-30] MEDS: INSULIN LISPRO 100 UNIT/ML SUBCUT SCH ×6 (10:44→21:13)
[2021-05-30] MEDS ORDERED: POTASSIUM CHLORIDE 20 MEQ TABLET PO ONE (14:03)
[2021-05-30] MEDS: VANCOMYCIN INJ 1,000 MG in SODIUM CHLORIDE 0.9% 250 ML IV SCH (15:22)
[2021-05-30 15:38] LABS: Bacteria,Urine Occasional /HPF (Few); Hyaline Casts,Urine 1 /LPF (0-3); Mucus,Urine Occasional /LPF (Occasional); RBC,Urine 4 /HPF (0-4); Squamous Epithelial Cell,Urine Occasional /HPF (0-10); Urine Appearance Clear (Clear); Urine Color Light Yellow (Yellow); Urine pH 5.5 (4.5-8.0)
[2021-05-30 15:39] LABS: Bilirubin,Urine Negative (Negative); Blood, Urine Trace mg/dL (Negative); Glucose,Urine (UA) Negative (Negative); Ketones,Urine Negative (Negative); Nitrite,Urine Negative (Negative); Protein,Urine 30 MG/DL; Urine Urobilinogen < 2.0 EU/DL (<2.0)
[2021-05-30] MEDS: ONDANSETRON 4 MG/2 ML VIAL IV PRN (17:10)
[2021-05-31] MEDS: MEROPENEM 500 MG in SODIUM CHLORIDE 0.9% 100 ML IV SCH ×4 (01:18→21:47)
[2021-05-31 05:59] LABS: Basophils # 0.1 10*3/uL (0.0-0.2); Basophils % 0.8 % (0.0-0.8); Eosinophils # 0.2 10*3/uL (0.0-0.87); Eosinophils % 1.7 % (0.00-10.9); Hematocrit 29.6 VOL% (35.7-47.0); Hemoglobin 9.6 GM/DL (12.0-16.0); Immature Granulocytes % 0.6 %; Immature Granulocytes Absolute 0.05 #; Lymphocytes # 1.5 10*3/uL (1.4-4.0); Lymphocytes % 16.9 % (21.3-54.2); Mean Corpuscular HGB Conc 32.4 GM/DL (32-36); Mean Corpuscular Volume 84.1 FL (87-102); Mean Platelet Volume 9.5 FL (9.6-12.0); Monocytes % 9.7 % (1.7-12.7); Neutrophils % 70.3 % (38.7-73.9); Platelet Count 369 T/CUMM (130-400); Red Blood Count 3.52 MC/CUMM (3.8-5.5); Red Cell Distribution Width 13.3 % (9.3-17.3); White Blood Count 8.6 T/CUMM (4-12)
[2021-05-31 06:35] LABS: Calcium 8.4 MG/DL (8.5-10.1); Osmolality,Calculated 270.1 MOS/KG (273-304); Potassium 3.3 MMOL/L (3.5-5.1)
[2021-05-31] MEDS: INSULIN LISPRO 100 UNIT/ML SUBCUT SCH ×7 (07:37→22:10)
[2021-05-31] MEDS ORDERED: SILVER NITRATE STICK 1 EACH TOP ONE (08:30)
[2021-05-31] MEDS: SPIRONOLACTONE 25 MG TABLET PO SCH (09:31)
[2021-05-31] MEDS: FERROUS SULFATE 325 MG TABLET PO SCH ×2 (09:31→21:47)
[2021-05-31] MEDS: METOPROLOL SUCCINATE XL 100 MG TABLET PO SCH (09:32)
[2021-05-31] MEDS: BACLOFEN 10 MG TABLET PO SCH ×2 (09:32→21:47)
[2021-05-31] MEDS: FUROSEMIDE 40 MG TABLET PO SCH (09:32)
[2021-05-31] MEDS: ATORVASTATIN 40 MG TABLET PO SCH (09:35)
[2021-05-31] MEDS: VANCOMYCIN INJ 1,000 MG in SODIUM CHLORIDE 0.9% 250 ML IV SCH (10:33)
[2021-05-31] MEDS: PANTOPRAZOLE 40 MG TABLET PO SCH (10:37)
[2021-05-31] MEDS ORDERED: DEXTROSE 50% 25 GM/50 ML VIAL IV PRN (14:38)
[2021-05-31] MEDS: INSULIN GLARGINE 100 UNIT/ML SUBCUT SCH (21:48)
[2021-06-01] MEDS: MEROPENEM 500 MG in SODIUM CHLORIDE 0.9% 100 ML IV SCH ×4 (01:00→22:55)
[2021-06-01] MEDS: ATORVASTATIN 40 MG TABLET PO SCH (09:10)
[2021-06-01] MEDS: INSULIN LISPRO 100 UNIT/ML SUBCUT SCH ×8 (09:10→22:57)
[2021-06-01] MEDS: PANTOPRAZOLE 40 MG TABLET PO SCH (09:10)
[2021-06-01] MEDS: FERROUS SULFATE 325 MG TABLET PO SCH ×2 (09:10→22:55)
[2021-06-01] MEDS: METOPROLOL SUCCINATE XL 100 MG TABLET PO SCH (09:10)
[2021-06-01] MEDS: FUROSEMIDE 40 MG TABLET PO SCH (09:10)
[2021-06-01] MEDS: SPIRONOLACTONE 25 MG TABLET PO SCH (09:10)
[2021-06-01] MEDS: BACLOFEN 10 MG TABLET PO SCH ×3 (09:13→22:55)
[2021-06-01] MEDS: LOSARTAN 50 MG TABLET PO SCH (10:45)
[2021-06-01] MEDS: HYDROmorphone 2 MG/1 ML VIAL IV PRN (13:49)
[2021-06-01] MEDS: INSULIN GLARGINE 100 UNIT/ML SUBCUT SCH (22:58)
[2021-06-02] MEDS: HYDROmorphone 2 MG/1 ML VIAL IV PRN ×2 (00:51→16:22)
[2021-06-02] MEDS: MEROPENEM 500 MG in SODIUM CHLORIDE 0.9% 100 ML IV SCH ×4 (03:52→22:12)
[2021-06-02] MEDS: INSULIN LISPRO 100 UNIT/ML SUBCUT SCH ×8 (08:21→22:12)
[2021-06-02] MEDS: PANTOPRAZOLE 40 MG TABLET PO SCH (08:22)
[2021-06-02] MEDS: FUROSEMIDE 40 MG TABLET PO SCH (08:22)
[2021-06-02] MEDS: SPIRONOLACTONE 25 MG TABLET PO SCH (08:22)
[2021-06-02] MEDS: METOPROLOL SUCCINATE XL 100 MG TABLET PO SCH (08:22)
[2021-06-02] MEDS: FERROUS SULFATE 325 MG TABLET PO SCH ×2 (08:22→22:11)
[2021-06-02] MEDS: ATORVASTATIN 40 MG TABLET PO SCH (08:22)
[2021-06-02] MEDS: BACLOFEN 10 MG TABLET PO SCH ×2 (08:22→22:11)
[2021-06-02] MEDS: LOSARTAN 50 MG TABLET PO SCH (08:23)
[2021-06-02] MEDS: INSULIN GLARGINE 100 UNIT/ML SUBCUT SCH (22:15)
[2021-06-03] MEDS: MEROPENEM 500 MG in SODIUM CHLORIDE 0.9% 100 ML IV SCH ×4 (03:07→21:26)
[2021-06-03 05:42] LABS: Basophils # 0.1 10*3/uL (0.0-0.2); Basophils % 0.8 % (0.0-0.8); Eosinophils # 0.2 10*3/uL (0.0-0.87); Eosinophils % 2.1 % (0.00-10.9); Hematocrit 28.9 VOL% (35.7-47.0); Hemoglobin 9.2 GM/DL (12.0-16.0); Immature Granulocytes % 0.8 %; Immature Granulocytes Absolute 0.06 #; Lymphocytes # 1.7 10*3/uL (1.4-4.0); Lymphocytes % 22.1 % (21.3-54.2); Mean Corpuscular HGB Conc 31.8 GM/DL (32-36); Mean Corpuscular Volume 84.8 FL (87-102); Mean Platelet Volume 9.4 FL (9.6-12.0); Neutrophils % 65.2 % (38.7-73.9); Platelet Count 390 T/CUMM (130-400); Red Blood Count 3.41 MC/CUMM (3.8-5.5); Red Cell Distribution Width 13.2 % (9.3-17.3); White Blood Count 7.7 T/CUMM (4-12)
[2021-06-03 06:02] LABS: Calcium 8.3 MG/DL (8.5-10.1); Osmolality,Calculated 281.5 MOS/KG (273-304); Potassium 3.1 MMOL/L (3.5-5.1)
[2021-06-03] MEDS: INSULIN LISPRO 100 UNIT/ML SUBCUT SCH ×7 (09:39→21:26)
[2021-06-03] MEDS: FERROUS SULFATE 325 MG TABLET PO SCH ×2 (09:40→21:25)
[2021-06-03] MEDS: PANTOPRAZOLE 40 MG TABLET PO SCH (09:40)
[2021-06-03] MEDS: METOPROLOL SUCCINATE XL 100 MG TABLET PO SCH (09:40)
[2021-06-03] MEDS: BACLOFEN 10 MG TABLET PO SCH ×2 (09:40→21:25)
[2021-06-03] MEDS: FUROSEMIDE 40 MG TABLET PO SCH (09:40)
[2021-06-03] MEDS: SPIRONOLACTONE 25 MG TABLET PO SCH (09:40)
[2021-06-03] MEDS: LOSARTAN 50 MG TABLET PO SCH (09:40)
[2021-06-03] MEDS: ATORVASTATIN 40 MG TABLET PO SCH (09:41)
[2021-06-03] MEDS: INSULIN GLARGINE 100 UNIT/ML SUBCUT SCH (21:26)
[2021-06-03] MEDS ORDERED: METOPROLOL TARTRATE 5 MG/5 ML VIAL IV ONE (22:47)
[2021-06-04] MEDS: MEROPENEM 500 MG in SODIUM CHLORIDE 0.9% 100 ML IV SCH ×4 (02:58→19:17)
[2021-06-04] MEDS: INSULIN LISPRO 100 UNIT/ML SUBCUT SCH ×9 (06:45→21:48)
[2021-06-04 08:20] LABS: Hematocrit 30.5 VOL% (35.7-47.0); Hemoglobin 9.6 GM/DL (12.0-16.0)
[2021-06-04 08:35] LABS: Calcium 8.5 MG/DL (8.5-10.1); Osmolality,Calculated 277.7 MOS/KG (273-304); Potassium 3.4 MMOL/L (3.5-5.1)
[2021-06-04] MEDS: METOPROLOL SUCCINATE XL 100 MG TABLET PO SCH (09:00)
[2021-06-04] MEDS: amLODIPine 5 MG TABLET PO SCH (09:00)
[2021-06-04] MEDS: FERROUS SULFATE 325 MG TABLET PO SCH ×2 (09:01→21:51)
[2021-06-04] MEDS: ATORVASTATIN 40 MG TABLET PO SCH (09:01)
[2021-06-04] MEDS: LOSARTAN 50 MG TABLET PO SCH (09:01)
[2021-06-04] MEDS: SPIRONOLACTONE 25 MG TABLET PO SCH (09:01)
[2021-06-04] MEDS: FUROSEMIDE 40 MG TABLET PO SCH (09:01)
[2021-06-04] MEDS: PANTOPRAZOLE 40 MG TABLET PO SCH (09:01)
[2021-06-04] MEDS: BACLOFEN 10 MG TABLET PO SCH ×2 (09:01→21:51)
[2021-06-04] MEDS: ALBUTEROL/IPRATROPIUM 3 ML NEB RESP TX SCH ×2 (13:30→19:50)
[2021-06-04] MEDS: INSULIN GLARGINE 100 UNIT/ML SUBCUT SCH (21:51)
[2021-06-05] MEDS: hydrALAZINE 20 MG/1 ML VIAL IV PRN (01:17)
[2021-06-05] MEDS: MEROPENEM 500 MG in SODIUM CHLORIDE 0.9% 100 ML IV SCH (01:19)
[2021-06-05] MEDS: ALBUTEROL/IPRATROPIUM 3 ML NEB RESP TX SCH ×4 (01:30→21:10)
[2021-06-05] MEDS: ACETAMINOPHEN 325 MG TABLET PO PRN (04:51)
[2021-06-05 06:07] LABS: Basophils # 0.1 10*3/uL (0.0-0.2); Basophils % 0.9 % (0.0-0.8); Eosinophils # 0.2 10*3/uL (0.0-0.87); Eosinophils % 1.8 % (0.00-10.9); Hematocrit 32.2 VOL% (35.7-47.0); Immature Granulocytes % 0.5 %; Immature Granulocytes Absolute 0.04 #; Lymphocytes # 1.6 10*3/uL (1.4-4.0); Lymphocytes % 19.1 % (21.3-54.2); Mean Corpuscular HGB Conc 31.1 GM/DL (32-36); Mean Corpuscular Volume 84.1 FL (87-102); Mean Platelet Volume 9.9 FL (9.6-12.0); Monocytes % 8.5 % (1.7-12.7); Neutrophils % 69.2 % (38.7-73.9); Platelet Count 378 T/CUMM (130-400); Red Blood Count 3.83 MC/CUMM (3.8-5.5); Red Cell Distribution Width 13.3 % (9.3-17.3); White Blood Count 8.5 T/CUMM (4-12)
[2021-06-05 06:27] LABS: Calcium 8.4 MG/DL (8.5-10.1); Osmolality,Calculated 278.7 MOS/KG (273-304); Potassium 3.4 MMOL/L (3.5-5.1)
[2021-06-05] MEDS: LOSARTAN 50 MG TABLET PO SCH (09:25)
[2021-06-05] MEDS: INSULIN LISPRO 100 UNIT/ML SUBCUT SCH ×8 (09:25→21:43)
[2021-06-05] MEDS: FERROUS SULFATE 325 MG TABLET PO SCH ×2 (09:25→21:40)
[2021-06-05] MEDS: POTASSIUM CHLORIDE 20 MEQ TABLET PO PRN ×3 (09:26→14:02)
[2021-06-05] MEDS: PANTOPRAZOLE 40 MG TABLET PO SCH (09:26)
[2021-06-05] MEDS: FUROSEMIDE 40 MG TABLET PO SCH (09:26)
[2021-06-05] MEDS: ATORVASTATIN 40 MG TABLET PO SCH (09:26)
[2021-06-05] MEDS: SPIRONOLACTONE 25 MG TABLET PO SCH (09:26)
[2021-06-05] MEDS: BACLOFEN 10 MG TABLET PO SCH ×2 (09:26→21:41)
[2021-06-05] MEDS: METOPROLOL SUCCINATE XL 100 MG TABLET PO SCH (09:26)
[2021-06-05] MEDS: amLODIPine 5 MG TABLET PO SCH (09:27)
[2021-06-05] MEDS: CITALOPRAM 20 MG TABLET PO SCH (21:42)
[2021-06-05] MEDS: INSULIN GLARGINE 100 UNIT/ML SUBCUT SCH (21:44)
[2021-06-06] MEDS: ALBUTEROL/IPRATROPIUM 3 ML NEB RESP TX SCH ×4 (01:47→19:20)
[2021-06-06 05:56] LABS: Calcium 8.5 MG/DL (8.5-10.1)
[2021-06-06] MEDS: LOSARTAN 50 MG TABLET PO SCH (08:19)
[2021-06-06] MEDS: FUROSEMIDE 40 MG TABLET PO SCH (08:19)
[2021-06-06] MEDS: ATORVASTATIN 40 MG TABLET PO SCH (08:19)
[2021-06-06] MEDS: FERROUS SULFATE 325 MG TABLET PO SCH ×2 (08:19→21:23)
[2021-06-06] MEDS: INSULIN LISPRO 100 UNIT/ML SUBCUT SCH ×8 (08:19→21:24)
[2021-06-06] MEDS: METOPROLOL SUCCINATE XL 100 MG TABLET PO SCH (08:19)
[2021-06-06] MEDS: BACLOFEN 10 MG TABLET PO SCH ×2 (08:20→21:23)
[2021-06-06] MEDS: amLODIPine 5 MG TABLET PO SCH (08:20)
[2021-06-06] MEDS: SPIRONOLACTONE 25 MG TABLET PO SCH (08:20)
[2021-06-06] MEDS: PANTOPRAZOLE 40 MG TABLET PO SCH (08:20)
[2021-06-06] MEDS: CITALOPRAM 20 MG TABLET PO SCH (21:23)
[2021-06-06] MEDS: INSULIN GLARGINE 100 UNIT/ML SUBCUT SCH (21:24)
[2021-06-07] MEDS: ALBUTEROL/IPRATROPIUM 3 ML NEB RESP TX SCH ×3 (00:21→13:48)
[2021-06-07 06:43] LABS: Basophils # 0.1 10*3/uL (0.0-0.2); Basophils % 1.1 % (0.0-0.8); Eosinophils # 0.2 10*3/uL (0.0-0.87); Eosinophils % 2.3 % (0.00-10.9); Hemoglobin 9.8 GM/DL (12.0-16.0); Immature Granulocytes % 0.6 %; Immature Granulocytes Absolute 0.05 #; Lymphocytes # 1.7 10*3/uL (1.4-4.0); Lymphocytes % 21.9 % (21.3-54.2); Mean Corpuscular HGB Conc 31.6 GM/DL (32-36); Mean Corpuscular Volume 83.6 FL (87-102); Mean Platelet Volume 9.3 FL (9.6-12.0); Monocytes % 8.9 % (1.7-12.7); Neutrophils % 65.2 % (38.7-73.9); Platelet Count 392 T/CUMM (130-400); Red Blood Count 3.71 MC/CUMM (3.8-5.5); Red Cell Distribution Width 13.3 % (9.3-17.3); White Blood Count 7.9 T/CUMM (4-12)
[2021-06-07 07:05] LABS: Calcium 8.6 MG/DL (8.5-10.1); Potassium 3.9 MMOL/L (3.5-5.1)
[2021-06-07] MEDS: METOPROLOL SUCCINATE XL 100 MG TABLET PO SCH (08:53)
[2021-06-07] MEDS: amLODIPine 5 MG TABLET PO SCH (08:53)
[2021-06-07] MEDS: FERROUS SULFATE 325 MG TABLET PO SCH (08:53)
[2021-06-07] MEDS: FUROSEMIDE 40 MG TABLET PO SCH (08:53)
[2021-06-07] MEDS: SPIRONOLACTONE 25 MG TABLET PO SCH (08:53)
[2021-06-07] MEDS: BACLOFEN 10 MG TABLET PO SCH (08:53)
[2021-06-07] MEDS: PANTOPRAZOLE 40 MG TABLET PO SCH (08:53)
[2021-06-07] MEDS: ATORVASTATIN 40 MG TABLET PO SCH (08:53)
[2021-06-07] MEDS: LOSARTAN 50 MG TABLET PO SCH (08:53)
[2021-06-07] MEDS: INSULIN LISPRO 100 UNIT/ML SUBCUT SCH ×6 (09:17→17:48)
[2021-06-07] MEDS: ONDANSETRON 4 MG/2 ML VIAL IV PRN (10:36)
[2021-06-07] MEDS ORDERED: TUBERCULIN SKIN TEST 0.1 ML SYRINGE INTRADERM ONE (12:00)
[2021-06-07 16:22] VITALS: BP 129/66
[2021-06-08] MEDS ORDERED: CLOPIDOGREL 75 MG TABLET PO SCH (09:00)
[2021-06-08] MEDS ORDERED: ASPIRIN EC 81 MG TABLET PO SCH (09:00)
== END 2021-06-07 17:55 | disposition swing bed (61) | DRG 240 ==
LOC: N.ED 10:51 → SUATTDRO 14:14 → N.EDINP 14:14 → N.3E 18:36
PROVIDERS: ADMIT Internal Medicine; ATTEND Hospitalist

== ENCOUNTER 2021-06-21 11:48 | Observation (INO) ==
[2021-06-21 12:58] LABS: Basophils # 0.1 10*3/uL (0.0-0.2); Basophils % 0.8 % (0.0-0.8); Eosinophils # 0.2 10*3/uL (0.0-0.87); Eosinophils % 2.9 % (0.00-10.9); Hematocrit 33.4 VOL% (35.7-47.0); Hemoglobin 10.5 GM/DL (12.0-16.0); Immature Granulocytes % 0.3 %; Immature Granulocytes Absolute 0.02 #; Lymphocytes # 1.8 10*3/uL (1.4-4.0); Lymphocytes % 24.1 % (21.3-54.2); Mean Corpuscular HGB Conc 31.4 GM/DL (32-36); Mean Corpuscular Volume 83.1 FL (87-102); Monocytes % 7.8 % (1.7-12.7); Neutrophils % 64.1 % (38.7-73.9); Platelet Count 273 T/CUMM (130-400); Red Blood Count 4.02 MC/CUMM (3.8-5.5); Red Cell Distribution Width 14.2 % (9.3-17.3); White Blood Count 7.3 T/CUMM (4-12)
[2021-06-21 13:17] LABS: Albumin 2.7 G/DL (3.4-5.0); Bilirubin,Total 0.6 MG/DL (0.20-1.00); Calcium 9.2 MG/DL (8.5-10.1); Osmolality,Calculated 288.1 MOS/KG (273-304); Potassium 4.3 MMOL/L (3.5-5.1); Total Protein 7.7 G/DL (6.4-8.2)
[2021-06-21 13:39] LABS: INR 1.2; PT Patient Result 13.4 SECS (10.5-12.0); Partial Thromboplastin Time 24.9 SECS (23.8-32.1)
[2021-06-21] MEDS ORDERED: LACTULOSE 20 GM/30 ML UDCUP PO PRN (16:26)
[2021-06-21] MEDS ORDERED: ALUMINUM/MAGNES/SIMETH MAX STR 30 ML UDCUP PO PRN (16:26)
[2021-06-21] MEDS ORDERED: DOCUSATE SODIUM 100 MG CAPSULE PO PRN (16:26)
[2021-06-21] MEDS ORDERED: hydrALAZINE 20 MG/1 ML VIAL IV PRN (16:26)
[2021-06-21] MEDS ORDERED: ONDANSETRON 4 MG/2 ML VIAL IV PRN (16:26)
[2021-06-21] MEDS ORDERED: GLUCAGON 1 MG VIAL IM PRN ×2 (16:26→16:40)
[2021-06-21] MEDS ORDERED: ALBUTEROL 2.5 MG/3 ML NEB RESP TX PRN (16:26)
[2021-06-21] MEDS ORDERED: hydrALAZINE 20 MG/1 ML VIAL IV STA (16:26)
[2021-06-21] MEDS ORDERED: DEXTROSE 50% 25 GM/50 ML VIAL IV PRN (16:40)
[2021-06-21] MEDS ORDERED: DEXTROSE 10% 250 ML BAG IV PRN (16:56)
[2021-06-21] MEDS: LACTATED RINGERS 1,000 ML IV SCH (17:06)
[2021-06-21] MEDS ORDERED: ENOXAPARIN 40 MG/0.4 ML SYRINGE SUBCUT SCH (18:00)
[2021-06-21] MEDS: INSULIN REGULAR 100 UNIT/ML SUBCUT SCH (18:10)
[2021-06-21 20:22] LABS: Acetaminophen < 2.0 UG/ML (10-30); Salicylate < 2.8 MG/DL (2.8-20)
[2021-06-21 22:44] LABS: Bacteria,Urine Few /HPF (Few); Mucus,Urine Few /LPF (Occasional); RBC,Urine 29 /HPF (0-4); Squamous Epithelial Cell,Urine Occasional /HPF (0-10)
[2021-06-21 22:45] LABS: Glucose,Urine (UA) Negative (Negative); Ketones,Urine Negative (Negative); Protein,Urine 100 mg/dL (Negative); Urine Appearance CLOUDY (Clear); Urine Color Yellow (Yellow); Urine Specific Gravity 1.025 (1.001-1.035)
[2021-06-21 22:46] LABS: Bilirubin,Urine Negative (Negative); Blood, Urine Trace mg/dL (Negative); Nitrite,Urine Negative (Negative); Urine Urobilinogen 0.2 eU/dL (<2.0)
[2021-06-21 23:11] LABS: Barbiturates Screen,Urine Negative (Negative); Benzodiazepines Screen,Urine Negative (Negative); Cannabinoid Screen,Urine Negative (Negative); Opiate Screen,Urine Negative (Negative); Phencyclidine Screen,Urine Negative (Negative)
[2021-06-22] MEDS: INSULIN REGULAR 100 UNIT/ML SUBCUT SCH ×5 (00:05→23:59)
[2021-06-22] MEDS: LACTATED RINGERS 1,000 ML IV SCH ×3 (01:48→23:59)
[2021-06-22 05:49] LABS: Basophils # 0.1 10*3/uL (0.0-0.2); Basophils % 1.3 % (0.0-0.8); Eosinophils # 0.2 10*3/uL (0.0-0.87); Eosinophils % 3.5 % (0.00-10.9); Hematocrit 28.8 VOL% (35.7-47.0); Hemoglobin 8.9 GM/DL (12.0-16.0); Immature Granulocytes % 0.4 %; Immature Granulocytes Absolute 0.02 #; Lymphocytes # 1.7 10*3/uL (1.4-4.0); Lymphocytes % 31.7 % (21.3-54.2); Mean Corpuscular HGB Conc 30.9 GM/DL (32-36); Mean Corpuscular Volume 83.5 FL (87-102); Mean Platelet Volume 10.3 FL (9.6-12.0); Monocytes % 9.1 % (1.7-12.7); Platelet Count 248 T/CUMM (130-400); Red Blood Count 3.45 MC/CUMM (3.8-5.5); Red Cell Distribution Width 14.3 % (9.3-17.3); White Blood Count 5.4 T/CUMM (4-12)
[2021-06-22 06:12] LABS: Albumin 2.2 G/DL (3.4-5.0); Bilirubin,Total 0.6 MG/DL (0.20-1.00); Calcium 9.3 MG/DL (8.5-10.1); Potassium 3.5 MMOL/L (3.5-5.1); Total Protein 6.5 G/DL (6.4-8.2)
[2021-06-22] MEDS: PANTOPRAZOLE 40 MG TABLET PO SCH (08:50)
[2021-06-22] MEDS: cefTRIAXone 1,000 MG in SODIUM CHLORIDE 0.9% 100 ML IV SCH (08:54)
[2021-06-22] MEDS: FERROUS SULFATE 325 MG TABLET PO SCH (21:01)
[2021-06-22] MEDS: APIXABAN 5 MG TABLET PO SCH (21:01)
[2021-06-22] MEDS: CITALOPRAM 20 MG TABLET PO SCH (21:01)
[2021-06-22] MEDS: HYDROXYCHLOROQUINE 200 MG TABLET PO SCH (21:03)
[2021-06-23 05:25] LABS: Basophils # 0.1 10*3/uL (0.0-0.2); Basophils % 0.9 % (0.0-0.8); Eosinophils # 0.2 10*3/uL (0.0-0.87); Eosinophils % 3.2 % (0.00-10.9); Hematocrit 27.6 VOL% (35.7-47.0); Hemoglobin 8.6 GM/DL (12.0-16.0); Immature Granulocytes % 0.4 %; Immature Granulocytes Absolute 0.02 #; Lymphocytes # 1.4 10*3/uL (1.4-4.0); Lymphocytes % 25.7 % (21.3-54.2); Mean Corpuscular HGB Conc 31.2 GM/DL (32-36); Mean Corpuscular Volume 84.4 FL (87-102); Mean Platelet Volume 10.2 FL (9.6-12.0); Monocytes % 9.7 % (1.7-12.7); Neutrophils % 60.1 % (38.7-73.9); Platelet Count 208 T/CUMM (130-400); Red Blood Count 3.27 MC/CUMM (3.8-5.5); Red Cell Distribution Width 14.1 % (9.3-17.3); White Blood Count 5.4 T/CUMM (4-12)
[2021-06-23 05:56] LABS: Bilirubin,Total 0.4 MG/DL (0.20-1.00); Calcium 8.3 MG/DL (8.5-10.1); Osmolality,Calculated 281.3 MOS/KG (273-304); Potassium 3.5 MMOL/L (3.5-5.1); Total Protein 6.4 G/DL (6.4-8.2)
[2021-06-23] MEDS: INSULIN REGULAR 100 UNIT/ML SUBCUT SCH ×3 (06:05→18:28)
[2021-06-23] MEDS ORDERED: APIXABAN 5 MG TABLET PO SCH (09:00)
[2021-06-23] MEDS: cefTRIAXone 1,000 MG in SODIUM CHLORIDE 0.9% 100 ML IV SCH (10:25)
[2021-06-23] MEDS: amLODIPine 5 MG TABLET PO SCH (10:26)
[2021-06-23] MEDS: SPIRONOLACTONE 25 MG TABLET PO SCH (10:26)
[2021-06-23] MEDS: CLOPIDOGREL 75 MG TABLET PO SCH (10:26)
[2021-06-23] MEDS: METOPROLOL SUCCINATE XL 100 MG TABLET PO SCH (10:27)
[2021-06-23] MEDS: APIXABAN 5 MG TABLET PO SCH ×2 (10:27→21:20)
[2021-06-23] MEDS: HYDROXYCHLOROQUINE 200 MG TABLET PO SCH ×2 (10:27→21:20)
[2021-06-23] MEDS: FERROUS SULFATE 325 MG TABLET PO SCH ×2 (10:28→21:20)
[2021-06-23] MEDS: PANTOPRAZOLE 40 MG TABLET PO SCH (10:28)
[2021-06-23] MEDS: ROSUVASTATIN 20 MG TABLET PO SCH (10:28)
[2021-06-23] MEDS: ASPIRIN EC 81 MG TABLET PO SCH (10:28)
[2021-06-23] MEDS: CITALOPRAM 20 MG TABLET PO SCH (21:20)
[2021-06-24] MEDS: INSULIN REGULAR 100 UNIT/ML SUBCUT SCH ×5 (00:01→23:57)
[2021-06-24 05:42] LABS: Basophils # 0.1 10*3/uL (0.0-0.2); Eosinophils # 0.2 10*3/uL (0.0-0.87); Eosinophils % 3.4 % (0.00-10.9); Hematocrit 28.3 VOL% (35.7-47.0); Hemoglobin 8.9 GM/DL (12.0-16.0); Immature Granulocytes % 0.2 %; Immature Granulocytes Absolute 0.01 #; Lymphocytes # 1.7 10*3/uL (1.4-4.0); Mean Corpuscular HGB Conc 31.4 GM/DL (32-36); Mean Corpuscular Volume 82.3 FL (87-102); Mean Platelet Volume 10.1 FL (9.6-12.0); Monocytes % 9.8 % (1.7-12.7); Neutrophils % 56.6 % (38.7-73.9); Platelet Count 221 T/CUMM (130-400); Red Blood Count 3.44 MC/CUMM (3.8-5.5); Red Cell Distribution Width 13.9 % (9.3-17.3); White Blood Count 5.9 T/CUMM (4-12)
[2021-06-24 06:05] LABS: Albumin 2.1 G/DL (3.4-5.0); Bilirubin,Total 0.7 MG/DL (0.20-1.00); Calcium 8.4 MG/DL (8.5-10.1); Osmolality,Calculated 281.3 MOS/KG (273-304); Potassium 3.2 MMOL/L (3.5-5.1); Total Protein 6.5 G/DL (6.4-8.2)
[2021-06-24] MEDS ORDERED: POTASSIUM CHLORIDE 20 MEQ TABLET PO ONE (07:47)
[2021-06-24] MEDS: ASPIRIN EC 81 MG TABLET PO SCH (08:41)
[2021-06-24] MEDS: METOPROLOL SUCCINATE XL 100 MG TABLET PO SCH (08:41)
[2021-06-24] MEDS: FERROUS SULFATE 325 MG TABLET PO SCH ×2 (08:41→21:48)
[2021-06-24] MEDS: PANTOPRAZOLE 40 MG TABLET PO SCH (08:41)
[2021-06-24] MEDS: amLODIPine 5 MG TABLET PO SCH (08:41)
[2021-06-24] MEDS: HYDROXYCHLOROQUINE 200 MG TABLET PO SCH ×2 (08:41→21:48)
[2021-06-24] MEDS: ROSUVASTATIN 20 MG TABLET PO SCH (08:41)
[2021-06-24] MEDS: CLOPIDOGREL 75 MG TABLET PO SCH (08:41)
[2021-06-24] MEDS: APIXABAN 5 MG TABLET PO SCH ×2 (08:42→21:47)
[2021-06-24] MEDS: SPIRONOLACTONE 25 MG TABLET PO SCH (08:42)
[2021-06-24] MEDS: cefTRIAXone 1,000 MG in SODIUM CHLORIDE 0.9% 100 ML IV SCH (08:42)
[2021-06-24] MEDS: DESITIN 4OZ/NYSTATIN 15 GRAM MIXTURE PASTE TOP SCH ×2 (15:58→22:10)
[2021-06-24] MEDS: CITALOPRAM 20 MG TABLET PO SCH (21:48)
[2021-06-25 05:27] LABS: Basophils # 0.1 10*3/uL (0.0-0.2); Basophils % 1.1 % (0.0-0.8); Eosinophils # 0.2 10*3/uL (0.0-0.87); Eosinophils % 3.9 % (0.00-10.9); Hematocrit 28.7 VOL% (35.7-47.0); Immature Granulocytes % 0.6 %; Immature Granulocytes Absolute 0.03 #; Lymphocytes # 1.6 10*3/uL (1.4-4.0); Lymphocytes % 29.6 % (21.3-54.2); Mean Corpuscular HGB Conc 31.4 GM/DL (32-36); Mean Corpuscular Volume 82.2 FL (87-102); Mean Platelet Volume 10.3 FL (9.6-12.0); Monocytes % 9.8 % (1.7-12.7); Platelet Count 200 T/CUMM (130-400); Red Blood Count 3.49 MC/CUMM (3.8-5.5); Red Cell Distribution Width 13.9 % (9.3-17.3); White Blood Count 5.4 T/CUMM (4-12)
[2021-06-25] MEDS: INSULIN REGULAR 100 UNIT/ML SUBCUT SCH ×2 (05:51→11:12)
[2021-06-25 05:57] LABS: Albumin 2.2 G/DL (3.4-5.0); Bilirubin,Total 0.4 MG/DL (0.20-1.00); Calcium 8.7 MG/DL (8.5-10.1); Osmolality,Calculated 284.1 MOS/KG (273-304); Potassium 3.4 MMOL/L (3.5-5.1); Total Protein 6.5 G/DL (6.4-8.2)
[2021-06-25] MEDS ORDERED: amLODIPine 10 MG TABLET PO SCH (09:00)
[2021-06-25] MEDS: DESITIN 4OZ/NYSTATIN 15 GRAM MIXTURE PASTE TOP SCH (09:00)
[2021-06-25] MEDS: POTASSIUM CHLORIDE RIDER 10 MEQ/100 ML PREMIX IV SCH ×2 (09:17→13:14)
[2021-06-25] MEDS: CLOPIDOGREL 75 MG TABLET PO SCH (09:33)
[2021-06-25] MEDS: HYDROXYCHLOROQUINE 200 MG TABLET PO SCH (09:33)
[2021-06-25] MEDS: ROSUVASTATIN 20 MG TABLET PO SCH (09:33)
[2021-06-25] MEDS: SPIRONOLACTONE 25 MG TABLET PO SCH (09:33)
[2021-06-25] MEDS: ASPIRIN EC 81 MG TABLET PO SCH (09:33)
[2021-06-25] MEDS: FERROUS SULFATE 325 MG TABLET PO SCH (09:33)
[2021-06-25] MEDS: APIXABAN 5 MG TABLET PO SCH (09:33)
[2021-06-25] MEDS: METOPROLOL SUCCINATE XL 100 MG TABLET PO SCH (09:34)
[2021-06-25] MEDS: PANTOPRAZOLE 40 MG TABLET PO SCH (09:34)
[2021-06-25] MEDS: cefTRIAXone 1,000 MG in SODIUM CHLORIDE 0.9% 100 ML IV SCH (11:12)
[2021-06-25] MEDS ORDERED: propofoL 200 MG/20 ML VIAL IV ONE (11:16)
[2021-06-25] MEDS ORDERED: LIDOCAINE 2% 5 ML VIAL ONE (11:16)
[2021-06-25] MEDS ORDERED: fentaNYL 100 MCG/2 ML VIAL ONE (11:17)
[2021-06-25] MEDS ORDERED: LACTATED RINGERS 1,000 ML IV SCH (11:30)
[2021-06-25] MEDS ORDERED: SEVOFLURANE 1 UNIT/15 MINUTE INH ONE (11:43)
[2021-06-25] MEDS ORDERED: ONDANSETRON 4 MG/2 ML VIAL ONE (11:43)
[2021-06-25] MEDS ORDERED: PHENYLEPHRINE 1 MG/10 ML SYRINGE IV ONE (11:43)
[2021-06-25 16:04] VITALS: BP 164/75
== END 2021-06-25 16:35 | disposition swing bed (61) ==
LOC: EDBD → EDUNIT# → N.EDINP 11:48 → N.ED 11:48 → SUATTDRO 18:04 → N.5E 18:12
PROVIDERS: ADMIT Hospitalist; ATTEND Internal Medicine

== ENCOUNTER 2021-07-01 11:37 | Observation (INO) ==
[2021-07-01] MEDS ORDERED: SODIUM CHLORIDE 0.9% 500 ML IV STA (11:55)
[2021-07-01] MEDS ORDERED: ONDANSETRON 4 MG/2 ML VIAL IV STA (11:55)
[2021-07-01 12:36] LABS: Basophils % 0.4 % (0.0-0.8); Eosinophils % 0.4 % (0.00-10.9); Hematocrit 24.4 VOL% (35.7-47.0); Hemoglobin 7.5 GM/DL (12.0-16.0); Immature Granulocytes % 0.4 %; Immature Granulocytes Absolute 0.04 #; Lymphocytes # 0.8 10*3/uL (1.4-4.0); Lymphocytes % 7.6 % (21.3-54.2); Mean Corpuscular HGB Conc 30.7 GM/DL (32-36); Mean Corpuscular Volume 84.7 FL (87-102); Mean Platelet Volume 10.5 FL (9.6-12.0); Monocytes % 5.4 % (1.7-12.7); Neutrophils % 85.8 % (38.7-73.9); Platelet Count 226 T/CUMM (130-400); Red Blood Count 2.88 MC/CUMM (3.8-5.5); Red Cell Distribution Width 15.1 % (9.3-17.3)
[2021-07-01 12:45] LABS: INR 1.2
[2021-07-01 12:52] LABS: Albumin 2.8 G/DL (3.4-5.0); Bilirubin,Total 0.5 MG/DL (0.20-1.00); Calcium 9.1 MG/DL (8.5-10.1); Osmolality,Calculated 289.1 MOS/KG (273-304); Potassium 3.3 MMOL/L (3.5-5.1); Total Protein 7.7 G/DL (6.4-8.2)
[2021-07-01] MEDS ORDERED: GLUCAGON 1 MG VIAL IM PRN (15:17)
[2021-07-01] MEDS ORDERED: ACETAMINOPHEN 325 MG TABLET PO PRN (15:17)
[2021-07-01] MEDS ORDERED: DEXTROSE 10% 250 ML BAG IV PRN (15:23)
[2021-07-01] MEDS: LACTATED RINGERS 1,000 ML IV SCH (16:12)
[2021-07-01] MEDS: PANTOPRAZOLE 40 MG VIAL IV SCH ×2 (16:12→21:27)
[2021-07-01] MEDS: hydrALAZINE 20 MG/1 ML VIAL IV PRN (16:13)
[2021-07-01] MEDS: POTASSIUM CHLORIDE RIDER 10 MEQ/100 ML PREMIX IV SCH ×2 (17:09→19:31)
[2021-07-01] MEDS: INSULIN LISPRO 100 UNIT/ML SUBCUT SCH ×2 (18:27→21:26)
[2021-07-01 18:40] LABS: Hematocrit 24.6 VOL% (35.7-47.0); Hemoglobin 7.7 GM/DL (12.0-16.0)
[2021-07-01] MEDS: ONDANSETRON 4 MG/2 ML VIAL IV PRN (19:32)
[2021-07-01] MEDS: MORPHINE 2 MG/1 ML SYRINGE IV PRN (21:26)
[2021-07-02] MEDS: ONDANSETRON 4 MG/2 ML VIAL IV PRN (00:59)
[2021-07-02 01:12] LABS: Osmolality,Calculated 283.4 MOS/KG (273-304); Potassium 3.7 MMOL/L (3.5-5.1)
[2021-07-02 01:17] LABS: Basophils % 0.1 % (0.0-0.8); Eosinophils % 0.2 % (0.00-10.9); Hematocrit 26.1 VOL% (35.7-47.0); Hemoglobin 7.9 GM/DL (12.0-16.0); Immature Granulocytes % 0.7 %; Immature Granulocytes Absolute 0.06 #; Lymphocytes # 0.7 10*3/uL (1.4-4.0); Lymphocytes % 8.8 % (21.3-54.2); Mean Corpuscular HGB Conc 30.3 GM/DL (32-36); Mean Corpuscular Volume 86.4 FL (87-102); Mean Platelet Volume 11.6 FL (9.6-12.0); Neutrophils % 83.2 % (38.7-73.9); Platelet Count 187 T/CUMM (130-400); Red Blood Count 3.02 MC/CUMM (3.8-5.5); Red Cell Distribution Width 15.6 % (9.3-17.3); White Blood Count 8.4 T/CUMM (4-12)
[2021-07-02] MEDS: LACTATED RINGERS 1,000 ML IV SCH ×3 (02:38→21:03)
[2021-07-02 05:13] LABS: Hematocrit 23.6 VOL% (35.7-47.0); Hemoglobin 7.5 GM/DL (12.0-16.0)
[2021-07-02] MEDS: PANTOPRAZOLE 40 MG VIAL IV SCH ×2 (10:27→21:04)
[2021-07-02] MEDS: INSULIN LISPRO 100 UNIT/ML SUBCUT SCH ×4 (10:28→20:15)
[2021-07-02 12:12] LABS: Hematocrit 25.4 VOL% (35.7-47.0); Hemoglobin 7.9 GM/DL (12.0-16.0)
[2021-07-02] MEDS: MORPHINE 2 MG/1 ML SYRINGE IV PRN (12:47)
[2021-07-02] MEDS: ZINC OXIDE PASTE 113 GM TUBE TOP SCH ×2 (15:20→21:08)
[2021-07-02] MEDS: METOPROLOL SUCCINATE XL 100 MG TABLET PO SCH (15:32)
[2021-07-02] MEDS: amLODIPine 5 MG TABLET PO SCH (15:33)
[2021-07-02] MEDS: LOSARTAN 50 MG TABLET PO SCH (15:33)
[2021-07-02] MEDS: hydrALAZINE 20 MG/1 ML VIAL IV PRN (15:36)
[2021-07-03] MEDS: hydrALAZINE 20 MG/1 ML VIAL IV PRN ×2 (04:58→13:48)
[2021-07-03] MEDS: LACTATED RINGERS 1,000 ML IV SCH ×2 (06:50→18:58)
[2021-07-03 06:53] LABS: Basophils % 0.5 % (0.0-0.8); Eosinophils # 0.1 10*3/uL (0.0-0.87); Eosinophils % 1.4 % (0.00-10.9); Hematocrit 25.4 VOL% (35.7-47.0); Hemoglobin 7.9 GM/DL (12.0-16.0); Immature Granulocytes % 0.7 %; Immature Granulocytes Absolute 0.04 #; Lymphocytes # 0.9 10*3/uL (1.4-4.0); Lymphocytes % 15.9 % (21.3-54.2); Mean Corpuscular HGB Conc 31.1 GM/DL (32-36); Mean Corpuscular Volume 83.8 FL (87-102); Mean Platelet Volume 10.1 FL (9.6-12.0); Monocytes % 6.6 % (1.7-12.7); Neutrophils % 74.9 % (38.7-73.9); Platelet Count 253 T/CUMM (130-400); Red Blood Count 3.03 MC/CUMM (3.8-5.5); Red Cell Distribution Width 15.3 % (9.3-17.3); White Blood Count 5.7 T/CUMM (4-12)
[2021-07-03 07:26] LABS: Calcium 9.1 MG/DL (8.5-10.1); Osmolality,Calculated 277.4 MOS/KG (273-304); Potassium 3.1 MMOL/L (3.5-5.1)
[2021-07-03] MEDS: ONDANSETRON 4 MG/2 ML VIAL IV PRN ×3 (09:47→22:28)
[2021-07-03] MEDS: PANTOPRAZOLE 40 MG VIAL IV SCH ×2 (09:47→22:28)
[2021-07-03] MEDS: INSULIN LISPRO 100 UNIT/ML SUBCUT SCH ×4 (10:31→22:28)
[2021-07-03] MEDS: LOSARTAN 50 MG TABLET PO SCH (10:32)
[2021-07-03] MEDS: METOPROLOL SUCCINATE XL 100 MG TABLET PO SCH (10:33)
[2021-07-03] MEDS: amLODIPine 5 MG TABLET PO SCH (10:33)
[2021-07-03] MEDS ORDERED: MAGNESIUM SULF RIDER 4 GM/100 ML PREMIX IV PRN (12:47)
[2021-07-03] MEDS ORDERED: MAGNESIUM SULF RIDER 2 GM/50 ML PREMIX IV PRN (12:47)
[2021-07-03] MEDS ORDERED: POTASSIUM CHLORIDE 20 MEQ TABLET PO ONE (12:48)
[2021-07-03] MEDS: ZINC OXIDE PASTE 113 GM TUBE TOP SCH ×2 (15:03→21:00)
[2021-07-03] MEDS: POTASSIUM CHLORIDE RIDER 10 MEQ/100 ML PREMIX IV PRN ×4 (15:27→18:59)
[2021-07-03] MEDS: ROSUVASTATIN 20 MG TABLET PO SCH (16:32)
[2021-07-03] MEDS: MORPHINE 2 MG/1 ML SYRINGE IV PRN (17:12)
[2021-07-04] MEDS: ONDANSETRON 4 MG/2 ML VIAL IV PRN ×2 (06:18→21:38)
[2021-07-04] MEDS: INSULIN LISPRO 100 UNIT/ML SUBCUT SCH ×4 (08:09→21:39)
[2021-07-04] MEDS: LOSARTAN 50 MG TABLET PO SCH (08:47)
[2021-07-04] MEDS: ROSUVASTATIN 20 MG TABLET PO SCH (08:47)
[2021-07-04] MEDS: METOPROLOL SUCCINATE XL 100 MG TABLET PO SCH (08:48)
[2021-07-04] MEDS: amLODIPine 5 MG TABLET PO SCH (08:48)
[2021-07-04] MEDS: PANTOPRAZOLE 40 MG VIAL IV SCH ×2 (08:54→21:38)
[2021-07-04] MEDS ORDERED: amLODIPine 10 MG TABLET PO SCH (09:00)
[2021-07-04 09:08] LABS: Hematocrit 23.7 VOL% (35.7-47.0); Hemoglobin 7.5 GM/DL (12.0-16.0)
[2021-07-04] MEDS ORDERED: amLODIPine 5 MG TABLET PO ONE (10:42)
[2021-07-04] MEDS: ZINC OXIDE PASTE 113 GM TUBE TOP SCH ×2 (11:52→21:39)
[2021-07-04] MEDS: LACTATED RINGERS 1,000 ML IV SCH ×3 (14:08→23:50)
[2021-07-04] MEDS: POTASSIUM CHLORIDE RIDER 10 MEQ/100 ML PREMIX IV PRN ×3 (19:00→23:16)
[2021-07-05] MEDS: POTASSIUM CHLORIDE RIDER 10 MEQ/100 ML PREMIX IV PRN ×4 (00:51→12:33)
[2021-07-05 05:40] LABS: Basophils % 0.9 % (0.0-0.8); Eosinophils # 0.2 10*3/uL (0.0-0.87); Eosinophils % 4.3 % (0.00-10.9); Hematocrit 23.5 VOL% (35.7-47.0); Hemoglobin 7.3 GM/DL (12.0-16.0); Immature Granulocytes % 0.4 %; Immature Granulocytes Absolute 0.02 #; Lymphocytes # 1.3 10*3/uL (1.4-4.0); Lymphocytes % 27.9 % (21.3-54.2); Mean Corpuscular HGB Conc 31.1 GM/DL (32-36); Mean Corpuscular Volume 82.5 FL (87-102); Mean Platelet Volume 9.7 FL (9.6-12.0); Neutrophils % 53.5 % (38.7-73.9); Platelet Count 211 T/CUMM (130-400); Red Blood Count 2.85 MC/CUMM (3.8-5.5); Red Cell Distribution Width 14.6 % (9.3-17.3); White Blood Count 4.6 T/CUMM (4-12)
[2021-07-05 05:57] LABS: Calcium 8.4 MG/DL (8.5-10.1); Osmolality,Calculated 279.1 MOS/KG (273-304); Potassium 3.5 MMOL/L (3.5-5.1)
[2021-07-05] MEDS: INSULIN LISPRO 100 UNIT/ML SUBCUT SCH ×4 (07:41→20:24)
[2021-07-05] MEDS ORDERED: LACTATED RINGERS 1,000 ML IV SCH (13:30)
[2021-07-05] MEDS ORDERED: LIDOCAINE 2% 5 ML VIAL ONE (13:52)
[2021-07-05] MEDS ORDERED: propofoL 200 MG/20 ML VIAL IV ONE (13:52)
[2021-07-05] MEDS: LOSARTAN 50 MG TABLET PO SCH (16:59)
[2021-07-05] MEDS: ZINC OXIDE PASTE 113 GM TUBE TOP SCH ×2 (16:59→21:11)
[2021-07-05] MEDS: LACTATED RINGERS 1,000 ML IV SCH (16:59)
[2021-07-05] MEDS: ROSUVASTATIN 20 MG TABLET PO SCH (16:59)
[2021-07-05] MEDS: amLODIPine 10 MG TABLET PO SCH (16:59)
[2021-07-05] MEDS: PANTOPRAZOLE 40 MG VIAL IV SCH ×2 (16:59→21:13)
[2021-07-05] MEDS: METOPROLOL SUCCINATE XL 100 MG TABLET PO SCH (16:59)
[2021-07-06] MEDS: LACTATED RINGERS 1,000 ML IV SCH ×2 (03:41→15:05)
[2021-07-06 06:13] LABS: Basophils % 0.6 % (0.0-0.8); Eosinophils # 0.3 10*3/uL (0.0-0.87); Eosinophils % 5.3 % (0.00-10.9); Hematocrit 23.8 VOL% (35.7-47.0); Hemoglobin 7.5 GM/DL (12.0-16.0); Immature Granulocytes % 0.2 %; Immature Granulocytes Absolute 0.01 #; Lymphocytes # 1.4 10*3/uL (1.4-4.0); Mean Corpuscular HGB Conc 31.5 GM/DL (32-36); Mean Corpuscular Volume 82.6 FL (87-102); Mean Platelet Volume 9.5 FL (9.6-12.0); Monocytes % 10.4 % (1.7-12.7); Neutrophils % 56.5 % (38.7-73.9); Platelet Count 201 T/CUMM (130-400); Red Blood Count 2.88 MC/CUMM (3.8-5.5); Red Cell Distribution Width 14.8 % (9.3-17.3); White Blood Count 5.1 T/CUMM (4-12)
[2021-07-06 06:28] LABS: Calcium 8.3 MG/DL (8.5-10.1); Osmolality,Calculated 276.4 MOS/KG (273-304); Potassium 3.4 MMOL/L (3.5-5.1)
[2021-07-06] MEDS ORDERED: POTASSIUM CHLORIDE 20 MEQ TABLET PO ONE ×2 (08:28→10:30)
[2021-07-06] MEDS: INSULIN LISPRO 100 UNIT/ML SUBCUT SCH ×2 (09:01→12:44)
[2021-07-06] MEDS: ROSUVASTATIN 20 MG TABLET PO SCH (09:02)
[2021-07-06] MEDS: amLODIPine 10 MG TABLET PO SCH (09:02)
[2021-07-06] MEDS: LOSARTAN 50 MG TABLET PO SCH (09:03)
[2021-07-06] MEDS: ZINC OXIDE PASTE 113 GM TUBE TOP SCH (09:03)
[2021-07-06] MEDS: METOPROLOL SUCCINATE XL 100 MG TABLET PO SCH (09:03)
[2021-07-06] MEDS: PANTOPRAZOLE 40 MG VIAL IV SCH (09:04)
[2021-07-06 12:19] VITALS: BP 154/76
== END 2021-07-06 14:57 | disposition home or self-care (01) ==
LOC: EDUNIT# → N.ED 11:37 → N.EDINP 15:17 → INTOOBSV 15:17 → SUATTDRO 15:17 → N.5E 16:37
PROVIDERS: ADMIT Internal Medicine; ATTEND Internal Medicine